=== PATIENT | female | born 1975 | race American Indian/Alaskan Native ===

== ENCOUNTER 2019-11-01 12:12 | Inpatient (IN) | payer MEDICAID, SELFPAY ==
[2019-11-01 17:16] LABS: Hematocrit 30.5 % (30.3-42.9); Mean Corpuscular HGB Conc 33 % (30-34); Mean Corpuscular Volume 108 fl (79-97); Platelet Count 213 K/mm3 (140-440); Red Blood Count 2.82 M/mm3 (3.65-5.03); Red Cell Distribution Width 17.9 % (13.2-15.2)
[2019-11-01 17:45] LABS: Alanine Aminotransferase 96 units/L (7-56); Albumin 2.7 g/dL (3.9-5); BUN/Creatinine Ratio 47; Blood Urea Nitrogen 14 mg/dL (7-17); Calcium 9.1 mg/dL (8.4-10.2); Hemolysis Index 8
[2019-11-01 17:47] LABS: % Iron Saturation 32.95 %
[2019-11-01] MEDS: PANTOPRAZOLE 40 MG INJ IV SCH (18:07)
[2019-11-01 18:19] LABS: Eosinophils % (Manual) 0 % (0.0-4.3); Total Cells Counted 100
[2019-11-01 18:29] LABS: Macrocytosis 1+; Ovalocytes 1+
[2019-11-01 18:30] LABS: Platelet Estimate Consistent w Auto; Schistocytes Few
--- NOTE | 2019-11-01 19:34 | History and Physical Report ---
History of Present Illness Date of examination: 11/01/19 Date of admission: 11/01/19 15:35 Chief complaint: Generalized weakness, fatigue, poor nutrition. History of present illness: Patient presented to the office .with CC of generalized weakness, fatigue, and unable to ambulate.She had not been able to eat. Recent gi scope , revealed GJ ulcer with some slow bleed.She was admitted, for sxs management, and control. Past History Past Medical History: anemia Social history: single Family history: no significant family history Medications and Allergies Allergies Allergy/AdvReac Type Severity Reaction Status Date / Time No Known Allergies Allergy Unverified 12/14/16 16:56 Home Medications Medication Instructions Recorded Confirmed Last Taken Type Albuterol INH(or & Nicu Only) 2 puff IH QID PRN 12/14/16 12/14/16 Unknown History [ProAir HFA Inhaler] HYDROcodone/APAP 5-325 [[place] 1 each PO Q4HR PRN #15 tablet 12/19/16 Unknown Rx 5/325] Active Meds: Active Medications Cyproheptadine HCl (Periactin) 4 mg PO TID VALERIA Fluoxetine HCl (Prozac) 20 mg PO QDAY VALERIA Folic Acid (Folvite) 1 mg PO QDAY VALERIA Dextrose/Sodium Chloride (D5ns) 1,000 mls @ 150 mls/hr IV DIRECT VALERIA Pantoprazole Sodium (Protonix) 20 mg IV QDAY [facility] Last Admin: 11/01/19 18:07 Dose: 20 mg Documented by: Sodium Chloride (Sodium Chloride Flush Syringe 10 Ml) 10 ml IV BID VALERIA Sodium Chloride (Sodium Chloride Flush Syringe 10 Ml) 10 ml IV PRN PRN PRN Reason: LINE FLUSH Review of Systems Constitutional: fatigue, weakness Breasts: deferred Cardiovascular: lightheadedness Neurological: weakness, parathesias Psychiatric: anxiety Exam - Constitutional Vitals: Temp Pulse Resp BP Pulse Ox 97.8 F 89 14 89/54 96 11/01/19 17:45 11/01/19 17:45 11/01/19 17:45 11/01/19 17:45 11/01/19 17:45 General appearance: Present: mild distress, well-nourished - EENT Eyes: Present: PERRL ENT: hearing intact, clear oral mucosa - Neck Neck: Present: supple, normal ROM - Respiratory Respiratory effort: normal Respiratory: bilateral: CTA - Cardiovascular Heart Sounds: Present: S1 & S2. Absent: rub, click - Extremities Extremities: pulses symmetrical, No edema Peripheral Pulses: within normal limits - Abdominal General gastrointestinal: Present: soft, non-tender, non-distended, normal bowel sounds Female genitourinary: Present: deferred - Rectal Rectal Exam: deferred - Integumentary Integumentary: Present: clear, warm, dry - Musculoskeletal Musculoskeletal: gait normal, strength equal bilaterally - Psychiatric Psychiatric: appropriate mood/affect, intact judgment & insight - Neurologic Neurologic: CNII-XII intact, moves all extremities Results - Labs CBC & Chem 7: 11/01/19 16:50 11/01/19 16:50 Labs: Abnormal lab results 11/01/19 11/01/19 11/01/19 Range/Units 16:50 16:50 16:50 WBC 1.9 L* (4.5-11.0) K/mm3 RBC 2.82 L (3.65-5.03) M/mm3 Hgb 10.0 L (10.1-14.3) gm/dl MCV 108 H (79-97) fl MCH 36 H (28-32) pg RDW 17.9 H (13.2-15.2) % Lymphocytes % (Manual) 45.0 H (13.4-35.0) % Monocytes % (Manual) 11.0 H (0.0-7.3) % Seg Neutrophils # Man 0.8 L (1.8-7.7) K/mm3 Lymphocytes # (Manual) 0.9 L (1.2-5.4) K/mm3 Chloride 108.7 H (98-107) mmol/L Carbon Dioxide 19 L (22-30) mmol/L Creatinine 0.3 L (0.7-1.2) mg/dL Glucose 60 L (65-100) mg/dL TIBC 173 L (250-450) mcg/dL Transferrin 164 L (192-382) mg/dl Ferritin (13.0-400.0) ng/mL AST 49 H (5-40) units/L ALT 96 H (7-56) units/L Total Protein 5.6 L (6.3-8.2) g/dL Albumin 2.7 L (3.9-5) g/dL Vitamin B12 (211-911) pg/mL 11/01/19 11/01/19 Range/Units 17:01 17:02 WBC (4.5-11.0) K/mm3 RBC (3.65-5.03) M/mm3 Hgb (10.1-14.3) gm/dl MCV (79-97) fl MCH (28-32) pg RDW (13.2-15.2) % Lymphocytes % (Manual) (13.4-35.0) % Monocytes % (Manual) (0.0-7.3) % Seg Neutrophils # Man (1.8-7.7) K/mm3 Lymphocytes # (Manual) (1.2-5.4) K/mm3 Chloride (98-107) mmol/L Carbon Dioxide (22-30) mmol/L Creatinine (0.7-1.2) mg/dL Glucose (65-100) mg/dL TIBC (250-450) mcg/dL Transferrin (192-382) mg/dl Ferritin 510.6 H (13.0-400.0) ng/mL AST (5-40) units/L ALT (7-56) units/L Total Protein (6.3-8.2) g/dL Albumin (3.9-5) g/dL Vitamin B12 > 2000 H (211-911) pg/mL Assessment and Plan - Patient Problems (1) Dehydration Current Visit: Yes Status: Acute Plan to address problem: hydration (2) Generalized weakness Current Visit: Yes Status: Acute Plan to address problem: Supportive care. (3) Poor nutrition Current Visit: Yes Status: Acute Plan to address problem: appetite enhancement. (4) Anemia Current Visit: Yes Status: Acute Plan to address problem: monitor labs.
[2019-11-01] MEDS ORDERED: [UNRECOGNIZED DRUG - REMARK] IH PRN ×2 (19:49→19:56)
[2019-11-01] MEDS ORDERED: ALBUTEROL 2.5 MG/3 ML NEBU IH PRN (20:04)
[2019-11-01] MEDS: ALPRAZolam 0.25 MG TAB PO SCH (22:27)
[2019-11-01] MEDS: CYPROHEPTADINE 4 MG TAB PO SCH (22:27)
[2019-11-02] MEDS ORDERED: SODIUM CHLORIDE 0.9% 500 ML 500 ML IV ONE (05:14)
[2019-11-02] MEDS ORDERED: SODIUM CHLORIDE 0.9% 500 ML 500 ML ONE (05:24)
[2019-11-02] MEDS: D5W/0.9% NACL 1,000 ML IV SCH ×2 (05:28→17:33)
[2019-11-02] MEDS: CYPROHEPTADINE 4 MG TAB PO SCH ×3 (09:01→21:25)
[2019-11-02] MEDS: PANTOPRAZOLE 40 MG INJ IV SCH (10:57)
[2019-11-02] MEDS: FOLIC ACID 1 MG TAB PO SCH (10:57)
[2019-11-02] MEDS: FLUoxetine 20 MG CAP PO SCH (10:57)
[2019-11-02] MEDS: ALPRAZolam 0.25 MG TAB PO SCH ×3 (10:57→21:25)
[2019-11-02] MEDS ORDERED: SODIUM CHLORIDE 0.9% 250ML 250 ML IV ONE (18:22)
--- NOTE | 2019-11-02 19:10 | Progress Note ---
Assessment and Plan - Patient Problems (1) Dehydration Current Visit: Yes Status: Acute Plan to address problem: hydration (2) Generalized weakness Current Visit: Yes Status: Acute Plan to address problem: Supportive care. (3) Poor nutrition Current Visit: Yes Status: Acute Plan to address problem: appetite enhancement. (4) Anemia Current Visit: Yes Status: Acute Plan to address problem: monitor labs. Subjective Date of service: 11/02/19 Interval history: Patient seen/examined, resting in bed. BP gets low to below 80, boluses of NS given.PT seen patient , and rec WALKER, instead of a cane.New labs ordered for am. Status changed due to clinical need. Work up incomplete. Objective - Constitutional Vitals: Vital Signs - 12hr 11/02/19 11/02/19 12:29 17:27 Temperature 99.0 F 97.4 F L Pulse Rate 83 92 H Respiratory 18 22 Rate Blood Pressure 85/57 79/56 O2 Sat by Pulse 97 98 Oximetry General appearance: Present: mild distress, cachectic - EENT Eyes: PERRL, EOM intact ENT: hearing intact, clear oral mucosa Ears: bilateral: normal - Neck Neck: supple, normal ROM - Respiratory Respiratory effort: normal Respiratory: bilateral: CTA - Breasts Breasts: deferred - Cardiovascular Rhythm: regular Heart Sounds: Present: S1 & S2. Absent: gallop, rub Extremities: pulses intact, No edema, normal color, Full ROM - Gastrointestinal General gastrointestinal: Present: soft, non-tender, non-distended, normal bowel sounds Rectal Exam: deferred - Genitourinary Female genitourinary: deferred - Integumentary Integumentary: clear, warm, dry - Musculoskeletal Musculoskeletal: 1, strength equal bilaterally - Neurologic Neurologic: moves all extremities - Psychiatric Psychiatric: memory intact, appropriate mood/affect, intact judgment & insight - Labs CBC & Chem 7: 11/01/19 16:50 11/01/19 16:50 Labs: Abnormal lab results 11/02/19 Range/Units 05:56 PTH Intact 74.90 H (15-65) pg/mL
[2019-11-02] MEDS ORDERED: SODIUM CHLORIDE 0.9% 500 ML 500 ML IV PRN (20:42)
[2019-11-02] MEDS ORDERED: traMADol 50 MG TAB PO PRN (20:46)
[2019-11-02] MEDS ORDERED: ONDANSETRON 4 MG/2 ML INJ IV PRN (20:48)
[2019-11-03] MEDS: D5W/0.9% NACL 1,000 ML IV SCH ×2 (05:40→12:53)
[2019-11-03] MEDS: CYPROHEPTADINE 4 MG TAB PO SCH ×3 (08:41→21:21)
[2019-11-03 09:08] LABS: Hematocrit 26.4 % (30.3-42.9); Hemoglobin 8.8 gm/dl (10.1-14.3); Mean Corpuscular HGB Conc 33 % (30-34); Mean Corpuscular Volume 109 fl (79-97); Platelet Count 206 K/mm3 (140-440); Red Blood Count 2.42 M/mm3 (3.65-5.03); Red Cell Distribution Width 17.7 % (13.2-15.2)
[2019-11-03 09:18] LABS: Alanine Aminotransferase 102 units/L (7-56); Albumin 2.3 g/dL (3.9-5); BUN/Creatinine Ratio 33; Blood Urea Nitrogen 10 mg/dL (7-17); Calcium 8.6 mg/dL (8.4-10.2); Hemolysis Index 71
[2019-11-03 09:31] LABS: Free T4 (Free Thyroxine) 0.75 ng/dL (0.76-1.46); Hepatitis B Surface Antigen Non-Reactive (Negative); Hepatitis C Virus Antibody Non-Reactive (NonReactive)
[2019-11-03 09:44] LABS: Eosinophils # (Auto) 0.1 K/mm3 (0.0-0.4); Eosinophils % (Auto) 4.7 % (0.0-4.3); Monocytes # (Auto) 0.2 K/mm3 (0.0-0.8); Monocytes % (Auto) 12.3 % (0.0-7.3)
[2019-11-03] MEDS: ALPRAZolam 0.25 MG TAB PO SCH ×2 (11:00→21:21)
[2019-11-03] MEDS: FLUoxetine 20 MG CAP PO SCH (11:25)
[2019-11-03] MEDS: PANTOPRAZOLE 20 MG TAB PO SCH (11:25)
[2019-11-03] MEDS: FOLIC ACID 1 MG TAB PO SCH (11:25)
[2019-11-03 11:55] LABS: Basophils % (Manual) 0 % (0.0-1.8); Total Cells Counted 100
[2019-11-03 11:56] LABS: Schistocytes Few; Target Cells Few
[2019-11-03 11:57] LABS: Platelet Estimate Consistent w Auto
--- NOTE | 2019-11-03 15:54 | Progress Note ---
Assessment and Plan - Patient Problems (1) Dehydration Current Visit: Yes Status: Acute Plan to address problem: hydration see notes above. (2) Generalized weakness Current Visit: Yes Status: Acute Plan to address problem: Supportive care. she may benefit from in patient rehab. (3) Poor nutrition Current Visit: Yes Status: Acute Plan to address problem: appetite enhancement. (4) Anemia Current Visit: Yes Status: Acute Plan to address problem: monitor labs. Subjective Date of service: 11/03/19 Interval history: Patient seen/examined, resting in bed. BP gets low to below 80, boluses of NS gi ayaka.PT seen patient , and rec WALKER, instead of a cane.New labs ordered for am. Status changed due to clinical need. Work up incomplete. Patient seen/examined, resting in bed, c/o still quite fatigued, weakness. labs reviewed, AST, ALT worsened, Cl up WBC even lower. Will change fluid to D5W.Will give growth factor if wbc continues to go up.Will get neurology involved.Do US of the abdomen. Objective - Constitutional Vitals: Vital Signs - 12hr 11/03/19 11/03/19 05:40 11:34 Temperature 97.0 F L 98.3 F Pulse Rate 72 79 Respiratory 16 18 Rate Blood Pressure 91/62 91/63 O2 Sat by Pulse 100 99 Oximetry General appearance: Present: mild distress, cachectic - EENT Eyes: PERRL, EOM intact ENT: hearing intact, clear oral mucosa Ears: bilateral: normal - Neck Neck: supple, normal ROM - Respiratory Respiratory effort: normal Respiratory: bilateral: CTA - Breasts Breasts: deferred - Cardiovascular Rhythm: regular Heart Sounds: Present: S1 & S2. Absent: gallop, rub Extremities: pulses intact, No edema, normal color, Full ROM - Gastrointestinal General gastrointestinal: Present: soft, non-tender, non-distended, normal bowel sounds Rectal Exam: deferred - Genitourinary Female genitourinary: deferred - Integumentary Integumentary: clear, warm, dry - Musculoskeletal Musculoskeletal: 1, strength equal bilaterally - Neurologic Neurologic: moves all extremities - Psychiatric Psychiatric: memory intact, appropriate mood/affect, intact judgment & insight - Labs CBC & Chem 7: 11/03/19 08:35 11/03/19 08:35 Labs: Abnormal lab results 11/03/19 11/03/19 11/03/19 Range/Units 08:35 08:35 08:35 WBC 1.6 L* (4.5-11.0) K/mm3 RBC 2.42 L (3.65-5.03) M/mm3 Hgb 8.8 L (10.1-14.3) gm/dl Hct 26.4 L (30.3-42.9) % MCV 109 H (79-97) fl MCH 36 H (28-32) pg RDW 17.7 H (13.2-15.2) % [place] % (Auto) 12.3 H (0.0-7.3) % Eos % (Auto) 4.7 H (0.0-4.3) % Seg Neuts % (Manual) 28.0 L (40.0-70.0) % Lymphocytes % (Manual) 52.0 H (13.4-35.0) % Monocytes % (Manual) 16.0 H (0.0-7.3) % Seg Neutrophils # 0.5 L (1.8-7.7) K/mm3 Seg Neutrophils # Man 0.4 L (1.8-7.7) K/mm3 Lymphocytes # (Manual) 0.8 L (1.2-5.4) K/mm3 Percent Retic 3.72 H (0.78-2.58) % Chloride 114.0 H (98-107) mmol/L Carbon Dioxide 18 L (22-30) mmol/L Creatinine 0.3 L (0.7-1.2) mg/dL AST 87 H (5-40) units/L ALT 102 H (7-56) units/L Total Protein 4.3 L D (6.3-8.2) g/dL Albumin 2.3 L (3.9-5) g/dL Free T4 0.75 L (0.76-1.46) ng/dL
--- NOTE | 2019-11-03 16:10 | Progress Note ---
Assessment and Plan - Patient Problems (1) Dehydration Current Visit: Yes Status: Acute Plan to address problem: hydration see notes above. (2) Generalized weakness Current Visit: Yes Status: Acute Plan to address problem: Supportive care. she may benefit from in patient rehab. (3) Poor nutrition Current Visit: Yes Status: Acute Plan to address problem: appetite enhancement. (4) Anemia Current Visit: Yes Status: Acute Plan to address problem: monitor labs. Subjective Date of service: 11/03/19 Interval history: Patient seen/examined, resting in bed. BP gets low to below 80, boluses of NS gi ayaka.PT seen patient , and rec WALKER, instead of a cane.New labs ordered for am. Status changed due to clinical need. Work up incomplete. Patient seen/examined, resting in bed, c/o still quite fatigued, weakness. labs reviewed, AST, ALT worsened, Cl up WBC even lower. Will change fluid to D5W.Will give growth factor if wbc continues to go up.Will get neurology involved.Do US of the abdomen. patient seen/examined, resting in bed, labs reviewed, case d/w patient. Objective - Constitutional Vitals: Vital Signs - 12hr 11/03/19 11/03/19 05:40 11:34 Temperature 97.0 F L 98.3 F Pulse Rate 72 79 Respiratory 16 18 Rate Blood Pressure 91/62 91/63 O2 Sat by Pulse 100 99 Oximetry General appearance: Present: mild distress, well-nourished - EENT Eyes: PERRL, EOM intact ENT: hearing intact, clear oral mucosa Ears: bilateral: normal - Neck Neck: supple, normal ROM - Respiratory Respiratory effort: normal Respiratory: bilateral: CTA - Breasts Breasts: deferred - Cardiovascular Rhythm: regular Heart Sounds: Present: S1 & S2. Absent: gallop, rub Extremities: pulses intact, No edema, normal color, Full ROM - Gastrointestinal General gastrointestinal: Present: soft, non-tender, non-distended, normal bowel sounds Rectal Exam: deferred - Genitourinary Female genitourinary: deferred - Integumentary Integumentary: clear, warm, dry - Musculoskeletal Musculoskeletal: 1, strength equal bilaterally - Neurologic Neurologic: moves all extremities - Psychiatric Psychiatric: memory intact, appropriate mood/affect, intact judgment & insight - Labs CBC & Chem 7: 11/03/19 08:35 11/03/19 08:35 Labs: Abnormal lab results 11/03/19 11/03/19 11/03/19 Range/Units 08:35 08:35 08:35 WBC 1.6 L* (4.5-11.0) K/mm3 RBC 2.42 L (3.65-5.03) M/mm3 Hgb 8.8 L (10.1-14.3) gm/dl Hct 26.4 L (30.3-42.9) % MCV 109 H (79-97) fl MCH 36 H (28-32) pg RDW 17.7 H (13.2-15.2) % [place] % (Auto) 12.3 H (0.0-7.3) % Eos % (Auto) 4.7 H (0.0-4.3) % Seg Neuts % (Manual) 28.0 L (40.0-70.0) % Lymphocytes % (Manual) 52.0 H (13.4-35.0) % Monocytes % (Manual) 16.0 H (0.0-7.3) % Seg Neutrophils # 0.5 L (1.8-7.7) K/mm3 Seg Neutrophils # Man 0.4 L (1.8-7.7) K/mm3 Lymphocytes # (Manual) 0.8 L (1.2-5.4) K/mm3 Percent Retic 3.72 H (0.78-2.58) % Chloride 114.0 H (98-107) mmol/L Carbon Dioxide 18 L (22-30) mmol/L Creatinine 0.3 L (0.7-1.2) mg/dL AST 87 H (5-40) units/L ALT 102 H (7-56) units/L Total Protein 4.3 L D (6.3-8.2) g/dL Albumin 2.3 L (3.9-5) g/dL Free T4 0.75 L (0.76-1.46) ng/dL
[2019-11-03] MEDS: DEXTROSE 5% IN WATER 1,000 ML IV SCH ×2 (17:22→23:02)
[2019-11-03 17:56] LABS: Hematocrit 28.8 % (30.3-42.9); Hemoglobin 9.4 gm/dl (10.1-14.3); Mean Corpuscular HGB Conc 33 % (30-34); Mean Corpuscular Volume 109 fl (79-97); Platelet Count 225 K/mm3 (140-440); Red Blood Count 2.64 M/mm3 (3.65-5.03); Red Cell Distribution Width 18.1 % (13.2-15.2)
[2019-11-03] MEDS: CYANOCOBALAMIN (VIT B-12) 1000 MCG/1 ML INJ SUB-Q SCH (21:42)
[2019-11-03 22:06] LABS: Basophils % (Manual) 0 % (0.0-1.8); Ovalocytes 1+; Total Cells Counted 100
[2019-11-03 22:07] LABS: Crenated RBC 1+; Macrocytosis 1+; Platelet Estimate Consistent w Auto
[2019-11-04] MEDS: DEXTROSE 5% IN WATER 1,000 ML IV SCH ×2 (06:27→20:00)
--- NOTE | 2019-11-04 10:04 | Ultrasound Report ---
ULTRASOUND ABDOMEN, COMPLETE INDICATION: Elevated LFTS/abd pain.. COMPARISON: No relevant prior imaging study available. FINDINGS: Pancreas: No significant abnormality. Abdominal Aorta: No significant abnormality. IVC: No significant abnormality. Liver: The liver measures 14.2 cm in length. Diffusely increased hepatic echogenicity which typically indicates hepatic steatosis.. Normal hepatopedal blood flow in the main portal vein. Gallbladder: Surgically absent. Bile ducts: No significant abnormality. Common bile duct measures 1.7 mm. Right kidney: 12.5 cm in length. No significant abnormality. Left kidney: 11.3 cm in length. No significant abnormality. Spleen: No significant abnormality. Free fluid: None. Additional Findings: None. IMPRESSION: 1. Sonographic findings suggesting hepatic steatosis. Signer Name: Mike Raya MD Signed: 11/04/2019 10:00 AM Workstation Name: [id number]
[2019-11-04 10:16] LABS: Alanine Aminotransferase 113 units/L (7-56); Albumin 2.1 g/dL (3.9-5); BUN/Creatinine Ratio 27; Blood Urea Nitrogen 8 mg/dL (7-17); Calcium 8.8 mg/dL (8.4-10.2); Hemolysis Index 10
--- NOTE | 2019-11-04 14:07 | Magnetic Resonance Report ---
MRI THORACIC SPINE WITHOUT AND WITH CONTRAST INDICATION / CLINICAL INFORMATION: global paresthesia. Myelopathy. TECHNIQUE: Multisequence, multiplanar images of the thoracic spine were obtained. Contrast dose report: MultiHance: 12 mL administered intravenously. COMPARISON: None available. FINDINGS: ALIGNMENT: Normal alignment is maintained throughout the thoracic region. VERTEBRAE:Normal marrow signal and vertebral body height is demonstrated throughout. VISUALIZED SPINAL CORD: No cord signal abnormality. No intrinsic cord lesions are identified. There i s no indication of cord compression. DEGENERATIVE FINDINGS: There is no indication of disc herniation, central canal stenosis or neurofora lashawn narrowing. PARASPINAL SOFT TISSUES: Small bilateral pleural effusions are noted. No additional paraspinous abnor malities are identified. ADDITIONAL FINDINGS: None. IMPRESSION: 1. No focal disc herniation, spinal canal stenosis or nerve root compression. 2. No indication of intrinsic cord lesion or cord compression. Signer Name: Jonathan Tanner MD Signed: 11/04/2019 2:00 PM Workstation Name: [id number]
--- NOTE | 2019-11-04 14:08 | Magnetic Resonance Report ---
MRI LUMBAR SPINE WITHOUT AND WITH CONTRAST INDICATION / CLINICAL INFORMATION: Sensory disturbance with global paresthesias. Myelopathy. TECHNIQUE: Multisequence, multiplanar images of the lumbar spine were obtained. Contrast dose report: MultiHance: 12 mL administered intravenously. COMPARISON: None available. FINDINGS: ALIGNMENT: Normal alignment is maintained throughout the lumbar region. VERTEBRAE:Normal bone marrow signal intensity is maintained throughout the lumbar region. Vertebral m orphology is normally preserved throughout. DISC MORPHOLOGY:Disc height and disc signal intensity are normally maintained throughout the lumbar r egion. VISUALIZED SPINAL CORD: Distal thoracic spinal cord, conus and nerve roots of the cauda equina all mcgarry ve an unremarkable appearance. Conus terminates at about the level of the superior endplate of L1. [id number] ANALYSIS: L1-2: No significant abnormality. L2-3: No significant abnormality. L3-4: No significant abnormality. L4-5: A small synovial cyst projects superiorly from the right L4-5 facet joint. L5-S1: No significant abnormality. There is no indication of disc herniation, central canal stenosis or neuroforaminal narrowing. PARASPINAL SOFT TISSUES: Evaluation of the paraspinous soft tissues reveals no definite abnormalities . Contrast administration: Following administration of intravenous contrast material there is enhanceme nt of normal vascular structures. No areas of abnormal contrast enhancement are identified. IMPRESSION: 1. No focal disc herniation, spinal canal stenosis or nerve root compression. 2. No indication of abnormal contrast enhancement. Signer Name: Jonathan Tanner MD Signed: 11/04/2019 2:04 PM Workstation Name: [id number]
--- NOTE | 2019-11-04 14:11 | Magnetic Resonance Report ---
MRI BRAIN WITHOUT AND WITH CONTRAST INDICATION / CLINICAL INFORMATION: severe myopathy/difficulty walking.. TECHNIQUE: Multisequence, multiplanar images were obtained. 12 cc of MultiHance was administered for postcontras t imaging. COMPARISON: None available. FINDINGS: The brain parenchyma signal intensity and its ga-white interface are within normal limits on all se quences. No evidence for diffusion restriction, hemorrhage, enhancing mass, extra-axial fluid collect ion or chronic infarct. No chronic white matter changes. Ventricular size is normal. The basal cister ns are patent. The posterior fossa and contents are within normal limits. The orbital cavities and paranasal sinuses are unremarkable. The mastoid air cells are well-aerated. IMPRESSION: Unremarkable MR brain with and without contrast. Signer Name: Carlos Greene Jr, MD Signed: 11/04/2019 2:07 PM Workstation Name: [id number]
--- NOTE | 2019-11-04 14:21 | Magnetic Resonance Report ---
MR CERVICAL SPINE WITH AND WITHOUT CONTRAST HISTORY: Severe myopathy, difficulty walking TECHNIQUE: Multisequence, multiplanar MRI before and after IV gadolinium. 12 cc of MultiHance was adm inistered intravenously. COMPARISON: None. FINDINGS: The cervical spinal cord is normal size and signal intensity throughout. No central canal stenosis, a bnormal intramedullary signal or abnormal enhancement. Normal height and alignment of the cervical vertebral bodies. An approximate 8 mm bone lesion is iden tified in C5 which demonstrates intermediate signal on T1, increased signal on T2 and mild enhancemen t following contrast. This has the appearance of an slightly atypical bone hemangioma. The remaining bone marrow signal is normal. The discs are within normal limits. No evidence for bulging disc or herniation. No significant degene rative disc disease. The facet joints and posterior elements are within normal limits. The paraspinal soft tissues are unremarkable. IMPRESSION: Unremarkable MR cervical spine with and without contrast. Vertebral body bone hemangioma is suspected at C5. Signer Name: Carlos Greene Jr, MD Signed: 11/04/2019 2:17 PM Workstation Name: [id number]
[2019-11-04] MEDS: CYPROHEPTADINE 4 MG TAB PO SCH ×3 (14:58→21:07)
[2019-11-04] MEDS: FOLIC ACID 1 MG TAB PO SCH (14:58)
[2019-11-04] MEDS: FLUoxetine 20 MG CAP PO SCH (14:59)
[2019-11-04] MEDS: PANTOPRAZOLE 20 MG TAB PO SCH (14:59)
[2019-11-04] MEDS: CYANOCOBALAMIN (VIT B-12) 1000 MCG/1 ML INJ SUB-Q SCH (15:00)
[2019-11-04] MEDS: ALPRAZolam 0.25 MG TAB PO SCH ×2 (15:01→21:56)
--- NOTE | 2019-11-04 17:08 | Consultation ---
History of Present Illness Consult date: 11/04/19 Reason for consult: other (marginal ulcer after gastric bypass) Chief complaint: generalized weakness - History of present illness History of present illness: 44 year old female presented to hospital with progressive generalized weakness, difficulty walking. She has hx of lap gastric bypass that had complications (pt unsure about details) that required two additional surgeries. She has had the weakness for about 3-4 months, but has been worked up for significant iron, vitamin D and B12 deficiency for which she was placed on replacement therapy but admits to taking it inconsistently. As part of her work up she had an EGD that showed a marginal ulcer in 03/2019 for which she was not placed on therapy. They repeated the EGD last week and showed that the ulcer appears larger and deeper. There was no active bleeding and patient denies noticing any blood in her stools. She says that she was started on some kind of medication about 2 weeks prior to the recent EGD but cannot recall what it is. She says that she gets epigastric discomfort when she eats. Past History Past Medical History: anemia Past Surgical History: cholecystectomy, , Other (lap gastric bypass with two additional procedures for complications within the first year of surgery) Social history: single Family history: no significant family history Medications and Allergies Allergies Allergy/AdvReac Type Severity Reaction Status Date / Time No Known Allergies Allergy Unverified 12/14/16 16:56 Home Medications Medication Instructions Recorded Confirmed Last Taken Type Albuterol INH(or & Nicu Only) 2 puff IH QID PRN 12/14/16 12/14/16 Unknown History [ProAir HFA Inhaler] HYDROcodone/APAP 5-325 [[place] 1 each PO Q4HR PRN #15 tablet 12/19/16 Unknown Rx 5/325] Active Meds: Active Medications Albuterol (Proventil) 2.5 mg IH QID PRN PRN Reason: Shortness Of Breath Alprazolam (Xanax) 0.25 mg PO Q12HR [facility] Last Admin: 11/04/19 15:01 Dose: 0.25 mg Documented by: Cyanocobalamin (Vitamin B-12) 1,000 mcg SUB-Q DAILY [facility] Stop: 11/05/19 10:01 Last Admin: 11/04/19 15:00 Dose: 1,000 mcg Documented by: Cyanocobalamin (Vitamin B-12) 1,000 mcg SUB-Q Tu [facility] Cyproheptadine HCl (Periactin) 4 mg PO TID [facility] Last Admin: 11/04/19 14:58 Dose: 4 mg Documented by: Fluoxetine HCl (Prozac) 20 mg PO QDAY [facility] Last Admin: 11/04/19 14:59 Dose: 20 mg Documented by: Folic Acid (Folvite) 1 mg PO QDAY [facility] Last Admin: 11/04/19 14:58 Dose: 1 mg Documented by: Sodium Chloride (Nacl 0.9% 500 Ml) 500 mls @ 0 mls/hr IV PRN PRN PRN Reason: SBP < 80 Last Admin: 11/04/19 01:54 Dose: 999 mls/hr Documented by: Dextrose (D5w) 1,000 mls @ 150 mls/hr IV DIRECT [facility] Last Admin: 11/04/19 06:27 Dose: 150 mls/hr Documented by: Thiamine HCl 100 mg/ Sodium (Chloride) 51 mls @ 100 mls/hr IV QDAY [facility] Ondansetron HCl (Zofran) 4 mg IV Q8H PRN PRN Reason: Nausea And Vomiting Pantoprazole Sodium (Protonix) 40 mg IV BID [facility] Sodium Chloride (Sodium Chloride Flush Syringe 10 Ml) 10 ml IV BID [facility] Last Admin: 11/04/19 14:59 Dose: 10 ml Documented by: Sodium Chloride (Sodium Chloride Flush Syringe 10 Ml) 10 ml IV PRN PRN PRN Reason: LINE FLUSH Sucralfate (Carafate) 1 gm PO Q6HR [facility] Tramadol HCl (Ultram) 50 mg PO Q12H PRN PRN Reason: Pain, Moderate (4-6) Review of Systems - Constitutional fatigue, weakness - Cardiovascular no chest pain - Respiratory no shortness of breath - Gastrointestinal no melena, no hematochezia - Neurological numbness, tingling, gait dysfunction - Psychiatric depression Exam Vital Signs Temp Pulse Resp BP Pulse Ox 97.8 F 89 14 89/54 96 11/01/19 17:45 11/01/19 17:45 11/01/19 17:45 11/01/19 17:45 11/01/19 17:45 - General physical appearance Positive: well developed, no distress - Respiratory Positive: normal expansion, normal respiratory effort - Abdomen Abdomen: Present: soft. Absent: tender, distended, guarding, rigid - Neurologic Neurologic: alert and oriented to time, place and person Results - Labs 11/03/19 17:00 11/04/19 07:45 Abnormal lab results 11/03/19 11/04/19 Range/Units 17:00 07:45 WBC 2.2 L (4.5-11.0) K/mm3 RBC 2.64 L (3.65-5.03) M/mm3 Hgb 9.4 L (10.1-14.3) gm/dl Hct 28.8 L (30.3-42.9) % MCV 109 H (79-97) fl MCH 36 H (28-32) pg RDW 18.1 H (13.2-15.2) % Seg Neuts % (Manual) 24.0 L (40.0-70.0) % Lymphocytes % (Manual) 65.0 H (13.4-35.0) % Monocytes % (Manual) 9.0 H (0.0-7.3) % Seg Neutrophils # Man 0.5 L (1.8-7.7) K/mm3 Chloride 111.6 H (98-107) mmol/L Carbon Dioxide 19 L (22-30) mmol/L Creatinine 0.3 L (0.7-1.2) mg/dL AST 78 H (5-40) units/L ALT 113 H (7-56) units/L Total Protein 4.7 L (6.3-8.2) g/dL Albumin 2.1 L (3.9-5) g/dL Diabetes panel 11/04/19 Range/Units 07:45 Sodium 139 (137-145) mmol/L Potassium 4.4 (3.6-5.0) mmol/L Chloride 111.6 H (98-107) mmol/L Carbon Dioxide 19 L (22-30) mmol/L BUN 8 (7-17) mg/dL Creatinine 0.3 L (0.7-1.2) mg/dL Glucose 73 (65-100) mg/dL Calcium 8.8 (8.4-10.2) mg/dL AST 78 H (5-40) units/L ALT 113 H (7-56) units/L Alkaline Phosphatase 92 (35-129) units/L Total Protein 4.7 L (6.3-8.2) g/dL Albumin 2.1 L (3.9-5) g/dL Calcium panel 11/04/19 Range/Units 07:45 Calcium 8.8 (8.4-10.2) mg/dL Albumin 2.1 L (3.9-5) g/dL Pituitary panel 11/04/19 Range/Units 07:45 Sodium 139 (137-145) mmol/L Potassium 4.4 (3.6-5.0) mmol/L Chloride 111.6 H (98-107) mmol/L Carbon Dioxide 19 L (22-30) mmol/L BUN 8 (7-17) mg/dL Creatinine 0.3 L (0.7-1.2) mg/dL Glucose 73 (65-100) mg/dL Calcium 8.8 (8.4-10.2) mg/dL Adrenal panel 11/04/19 Range/Units 07:45 Sodium 139 (137-145) mmol/L Potassium 4.4 (3.6-5.0) mmol/L Chloride 111.6 H (98-107) mmol/L Carbon Dioxide 19 L (22-30) mmol/L BUN 8 (7-17) mg/dL Creatinine 0.3 L (0.7-1.2) mg/dL Glucose 73 (65-100) mg/dL Calcium 8.8 (8.4-10.2) mg/dL Total Bilirubin 0.40 (0.1-1.2) mg/dL AST 78 H (5-40) units/L ALT 113 H (7-56) units/L Alkaline Phosphatase 92 (35-129) units/L Total Protein 4.7 L (6.3-8.2) g/dL Albumin 2.1 L (3.9-5) g/dL Assessment and Plan 44 year old hx with a hx of gastric bypass performed about 5 years ago at OSH. currently with peripheral neuropathy, vitamin deficiency, and chronic marginal ulcer. stable and afebrile. getting worked up by neurology - appreciate their input may be a candidate for inpatient PT B12 and iron being replaced. will check thiamine and replace. low albumin and other parameters suggestive of poor nutrition. will change diet to GI soft, continue protein shakes marginal ulcer (no gross active bleeding) will start on IV protonix and carafate liquid to aid in healing of ulcer. most ulcers will heal with supportive care if consistent and given ample time. Surgical records requested from Dr. Buchanan at [facility], waiting for arrival so they can be reviewed. impressed upon patient the importance of being consistent with her vitamin re placement therapy and medical therapy to treat marginal ulcer.
--- NOTE | 2019-11-04 17:26 | Consultation ---
History of Present Illness Consult date: 11/04/19 Reason for Consult: Generalized weakness Chief complaint: Generalized weakness History of present illness: Patient is a 44 y/o woman w/ a h/o anxiety, depression, asthma. Patient states that in June, she began to develop paresthesias in b/l feet. She states that after this, she began to experience generalized weakness. Paresthesias in bilateral feet progressed to the point where she has decreased sensations in both feet. She also began to notice imbalance with walking. She feels that her muscles in the arms and legs have all atrophied some extent. She also states that she has some extent of bowel incontinence, however denies bladder incontinence. She also states that she had 2 coronary accidents about 1 year ago. She denies muscle twitching or cramps. Denies dysphagia and dysarthria. Past History Past Medical History: anemia, other (anxiety, depression, asthma) Past Surgical History: cholecystectomy, , Other (lap gastric bypass with two additional procedures for complications within the first year of surgery) Social history: single, lives with family Family history: no significant family history Medications and Allergies Allergies Allergy/AdvReac Type Severity Reaction Status Date / Time No Known Allergies Allergy Unverified 12/14/16 16:56 Home Medications Medication Instructions Recorded Confirmed Last Taken Type Albuterol INH(or & Nicu Only) 2 puff IH QID PRN 12/14/16 12/14/16 Unknown History [ProAir HFA Inhaler] HYDROcodone/APAP 5-325 [[place] 1 each PO Q4HR PRN #15 tablet 12/19/16 Unknown Rx 5/325] Active Meds: Active Medications Albuterol (Proventil) 2.5 mg IH QID PRN PRN Reason: Shortness Of Breath Alprazolam (Xanax) 0.25 mg PO Q12HR [facility] Last Admin: 11/04/19 15:01 Dose: 0.25 mg Documented by: Cyanocobalamin (Vitamin B-12) 1,000 mcg SUB-Q DAILY [facility] Stop: 11/05/19 10:01 Last Admin: 11/04/19 15:00 Dose: 1,000 mcg Documented by: Cyanocobalamin (Vitamin B-12) 1,000 mcg SUB-Q Tu [facility] Cyproheptadine HCl (Periactin) 4 mg PO TID [facility] Last Admin: 11/04/19 14:58 Dose: 4 mg Documented by: Fluoxetine HCl (Prozac) 20 mg PO QDAY [facility] Last Admin: 11/04/19 14:59 Dose: 20 mg Documented by: Folic Acid (Folvite) 1 mg PO QDAY [facility] Last Admin: 11/04/19 14:58 Dose: 1 mg Documented by: Sodium Chloride (Nacl 0.9% 500 Ml) 500 mls @ 0 mls/hr IV PRN PRN PRN Reason: SBP < 80 Last Admin: 11/04/19 01:54 Dose: 999 mls/hr Documented by: Dextrose (D5w) 1,000 mls @ 150 mls/hr IV DIRECT [facility] Last Admin: 11/04/19 06:27 Dose: 150 mls/hr Documented by: Thiamine HCl 100 mg/ Sodium (Chloride) 51 mls @ 100 mls/hr IV QDAY [facility] Ondansetron HCl (Zofran) 4 mg IV Q8H PRN PRN Reason: Nausea And Vomiting Pantoprazole Sodium (Protonix) 40 mg IV BID [facility] Sodium Chloride (Sodium Chloride Flush Syringe 10 Ml) 10 ml IV BID [facility] Last Admin: 11/04/19 14:59 Dose: 10 ml Documented by: Sodium Chloride (Sodium Chloride Flush Syringe 10 Ml) 10 ml IV PRN PRN PRN Reason: LINE FLUSH Sucralfate (Carafate) 1 gm PO Q6HR [facility] Tramadol HCl (Ultram) 50 mg PO Q12H PRN PRN Reason: Pain, Moderate (4-6) Review of Systems All systems: negative Neurological: weakness, parathesias, numbness Physical Examination - Vital Signs Vital Signs: Vital Signs Temp Pulse Resp BP Pulse Ox 97.8 F 89 14 89/54 96 11/01/19 17:45 11/01/19 17:45 11/01/19 17:45 11/01/19 17:45 11/01/19 17:45 - Physical Exam Narrative exam: Patient is alert, awake, oriented 4, follows complex commands. PERRL, EOMI, VFF, no facial weakness noted, bilateral intact to light touch, no tongue atrophy or fasciculations noted. 4/5 strength noted in bilateral upper extremities, 3/5 strength noted in bilateral lower extremities. Noted to have decreased sensations in bilateral lower extremities with a proximal distal gradient. Noted to have decreased proprioception and vibration sensation in bilateral lower extremities in a proximal distal gradient. Bilaterally intact finger to nose, however unable to perform [id number] due to bilateral lower extremity weakness. 1+ reflexes in bilateral upper extremities and patellar reflexes, absent ankle reflexes bilaterally. - Constitutional General appearance: comfortable - EENT EENT: Present: ATNC, PERRL, mucous membranes moist, hearing intact, vision intact - Respiratory Respiratory: Present: lungs clear, normal breath sounds - Cardiovascular Cardiovascular: Present: regular rate, normal S1, normal S2 Extremities: Present: no clubbing, cyanosis, no inflammation - Gastrointestinal Gastrointestinal: Present: normoactive bowel sounds, soft, non-tender - Integumentary Integumentary: Present: normal - Musculoskeletal Musculoskeletal: Present: no fluid collection, no pain - Psychiatric Psychiatric: Present: mood/affect appropriate Results - Laboratory Findings CBC and BMP: 11/03/19 17:00 11/04/19 07:45 Abnormal Lab Findings: Abnormal Labs 11/01/19 11/01/19 11/01/19 16:50 16:50 16:50 WBC 1.9 L* RBC 2.82 L Hgb 10.0 L Hct MCV 108 H MCH 36 H RDW 17.9 H [place] % (Auto) Eos % (Auto) Seg Neuts % (Manual) Lymphocytes % (Manual) 45.0 H Monocytes % (Manual) 11.0 H Seg Neutrophils # Seg Neutrophils # Man 0.8 L Lymphocytes # (Manual) 0.9 L Percent Retic Chloride 108.7 H Carbon Dioxide 19 L Creatinine 0.3 L Glucose 60 L TIBC 173 L Transferrin 164 L Ferritin AST 49 H ALT 96 H Total Protein 5.6 L Albumin 2.7 L Vitamin B12 Free T4 PTH Intact 11/01/19 11/01/19 11/02/19 17:01 17:02 05:56 WBC RBC Hgb Hct MCV MCH RDW [place] % (Auto) Eos % (Auto) Seg Neuts % (Manual) Lymphocytes % (Manual) Monocytes % (Manual) Seg Neutrophils # Seg Neutrophils # Man Lymphocytes # (Manual) Percent Retic Chloride Carbon Dioxide Creatinine Glucose TIBC Transferrin Ferritin 510.6 H AST ALT Total Protein Albumin Vitamin B12 > 2000 H Free T4 PTH Intact 74.90 H 11/03/19 11/03/19 11/03/19 08:35 08:35 08:35 WBC 1.6 L* RBC 2.42 L Hgb 8.8 L Hct 26.4 L MCV 109 H MCH 36 H RDW 17.7 H [place] % (Auto) 12.3 H Eos % (Auto) 4.7 H Seg Neuts % (Manual) 28.0 L Lymphocytes % (Manual) 52.0 H Monocytes % (Manual) 16.0 H Seg Neutrophils # 0.5 L Seg Neutrophils # Man 0.4 L Lymphocytes # (Manual) 0.8 L Percent Retic 3.72 H Chloride 114.0 H Carbon Dioxide 18 L Creatinine 0.3 L Glucose TIBC Transferrin Ferritin AST 87 H ALT 102 H Total Protein 4.3 L D Albumin 2.3 L Vitamin B12 Free T4 0.75 L PTH Intact 11/03/19 11/04/19 17:00 07:45 WBC 2.2 L RBC 2.64 L Hgb 9.4 L Hct 28.8 L MCV 109 H MCH 36 H RDW 18.1 H [place] % (Auto) Eos % (Auto) Seg Neuts % (Manual) 24.0 L Lymphocytes % (Manual) 65.0 H Monocytes % (Manual) 9.0 H Seg Neutrophils # Seg Neutrophils # Man 0.5 L Lymphocytes # (Manual) Percent Retic Chloride 111.6 H Carbon Dioxide 19 L Creatinine 0.3 L Glucose TIBC Transferrin Ferritin AST 78 H ALT 113 H Total Protein 4.7 L Albumin 2.1 L Vitamin B12 Free T4 PTH Intact Assessment and Plan Patient is a 44 y/o woman w/ a h/o anxiety, depression, asthma, who p/w generalized weakness, decreased sensations in bilateral lower extremities in a proximal distal gradient, and imbalance. According to patient's clinical findings, it is possible that she has a generalized peripheral neuropathy. Given the fact that the patient has a history of gastric bypass 4 years ago, it is possible that the patient's current symptoms are due to macronutrient or micronutrient deficiency. To support this diagnosis, the patient also has pancytopenia, which may also be due to nutrient deficiency. Given her gradual progression of symptoms, it is less likely that she has AIDP or CIDP, however this is still in d/d. Plan: 1. Peripheral neuropathy: - MRI brain C/T/L spine unremarkable. - Given h/o gastric bypass, will check deficiency of: copper, Vitamin B1, zinc, folate, vitamin D, magnesium, vitamin E, Vitamin B6 - Check LP for evidence of AIDP/CIDP. - Recommend for patient to have EMG/NCS, which is not performed at [facility], and therefore will have to be done elsewhere. - Recommend PT/OT - Will continue to monitor patient. Thank you for allowing me to take part in the care of this patient. Mendoza Persaud MD Neurology
[2019-11-04] MEDS: SUCRALFATE 1 GM/10 ML ORAL LIQD PO SCH (18:12)
[2019-11-04] MEDS: THIAMINE 100 MG in SODIUM CHLORIDE 0.9% 50 ML IV SCH (18:12)
--- NOTE | 2019-11-04 20:22 | Progress Note ---
Assessment and Plan - Patient Problems (1) Dehydration Current Visit: Yes Status: Acute Plan to address problem: hydration see notes above. (2) Generalized weakness Current Visit: Yes Status: Acute Plan to address problem: Supportive care. she may benefit from in patient rehab. (3) Poor nutrition Current Visit: Yes Status: Acute Plan to address problem: appetite enhancement. (4) Anemia Current Visit: Yes Status: Acute Plan to address problem: monitor labs. Subjective Date of service: 11/04/19 Interval history: Patient seen/examined, resting in bed. BP gets low to below 80, boluses of NS gi ayaka.PT seen patient , and rec WALKER, instead of a cane.New labs ordered for am. Status changed due to clinical need. Work up incomplete. Patient seen/examined, resting in bed, c/o still quite fatigued, weakness. labs reviewed, AST, ALT worsened, Cl up WBC even lower. Will change fluid to D5W.Will give growth factor if wbc continues to go up.Will get neurology involved.Do US of the abdomen. patient seen/examined, resting in bed, labs reviewed, case d/w patient. Patient seen/examined, resting in bed, scan results reviewed, and case d/w the Neurology, and with patient.There is rare hemangioma on C5 bone, and steastosis of the Liver on US.She was also see by the gastric by pass surgeon, and talat reciated.I will hope that she can go to inpatient rehab. Objective - Constitutional Vitals: Vital Signs - 12hr 11/04/19 15:25 Temperature 98.5 F Pulse Rate 89 Respiratory 19 Rate Blood Pressure 98/64 O2 Sat by Pulse 100 Oximetry General appearance: Present: mild distress, cachectic - EENT Eyes: PERRL, EOM intact ENT: hearing intact, clear oral mucosa Ears: bilateral: normal - Neck Neck: supple, normal ROM - Respiratory Respiratory effort: normal Respiratory: bilateral: CTA - Breasts Breasts: deferred - Cardiovascular Rhythm: regular Heart Sounds: Present: S1 & S2. Absent: gallop, rub Extremities: pulses intact, No edema, normal color, Full ROM - Gastrointestinal General gastrointestinal: Present: soft, non-tender, non-distended, normal bowel sounds - Genitourinary Female genitourinary: deferred - Integumentary Integumentary: clear, warm, dry - Musculoskeletal Musculoskeletal: 1, strength equal bilaterally - Neurologic Neurologic: moves all extremities - Psychiatric Psychiatric: memory intact, appropriate mood/affect, intact judgment & insight - Labs CBC & Chem 7: 11/03/19 17:00 11/04/19 07:45 Labs: Abnormal lab results 11/03/19 11/04/19 Range/Units 17:00 07:45 Seg Neuts % (Manual) 24.0 L (40.0-70.0) % Lymphocytes % (Manual) 65.0 H (13.4-35.0) % Monocytes % (Manual) 9.0 H (0.0-7.3) % Seg Neutrophils # Man 0.5 L (1.8-7.7) K/mm3 Chloride 111.6 H (98-107) mmol/L Carbon Dioxide 19 L (22-30) mmol/L Creatinine 0.3 L (0.7-1.2) mg/dL AST 78 H (5-40) units/L ALT 113 H (7-56) units/L Total Protein 4.7 L (6.3-8.2) g/dL Albumin 2.1 L (3.9-5) g/dL
[2019-11-04 20:26] LABS: Hematocrit 27.3 % (30.3-42.9); Hemoglobin 8.8 gm/dl (10.1-14.3); Mean Corpuscular HGB Conc 32 % (30-34); Mean Corpuscular Volume 109 fl (79-97); Platelet Count 221 K/mm3 (140-440); Red Blood Count 2.49 M/mm3 (3.65-5.03); Red Cell Distribution Width 18.1 % (13.2-15.2)
[2019-11-04 21:27] LABS: Crenated RBC 1+; Macrocytosis 1+; Ovalocytes 1+; Total Cells Counted 100
[2019-11-04] MEDS: PANTOPRAZOLE 40 MG INJ IV SCH (21:56)
[2019-11-05] MEDS: SUCRALFATE 1 GM/10 ML ORAL LIQD PO SCH ×4 (00:25→17:29)
[2019-11-05] MEDS: DEXTROSE 5% IN WATER 1,000 ML IV SCH ×3 (00:30→16:30)
[2019-11-05] MEDS: PANTOPRAZOLE 40 MG INJ IV SCH (09:25)
[2019-11-05] MEDS: FLUoxetine 20 MG CAP PO SCH (09:26)
[2019-11-05] MEDS: CYPROHEPTADINE 4 MG TAB PO SCH ×3 (09:26→20:44)
[2019-11-05] MEDS: FOLIC ACID 1 MG TAB PO SCH (09:28)
[2019-11-05] MEDS: ALPRAZolam 0.25 MG TAB PO SCH ×2 (11:27→21:30)
[2019-11-05] MEDS: CYANOCOBALAMIN (VIT B-12) 1000 MCG/1 ML INJ SUB-Q SCH (11:33)
[2019-11-05] MEDS: THIAMINE 100 MG in SODIUM CHLORIDE 0.9% 50 ML IV SCH (11:37)
--- NOTE | 2019-11-05 12:27 | Progress Note ---
Assessment and Plan Patient is a 44 y/o woman w/ a h/o anxiety, depression, asthma, who p/w generalized weakness, decreased sensations in bilateral lower extremities in a proximal distal gradient, and imbalance. According to patient's clinical findings, it is possible that she has a generalized peripheral neuropathy. Given the fact that the patient has a history of gastric bypass 4 years ago, it is possible that the patient's current symptoms are due to macronutrient or micronutrient deficiency. To support this diagnosis, the patient also has pancytopenia, which may also be due to nutrient deficiency. Given her gradual progression of symptoms, it is less likely that she has AIDP or CIDP, however this is still in d/d. Plan: 1. Peripheral neuropathy: - MRI brain C/T/L spine unremarkable. - Given h/o gastric bypass, will check deficiency of: copper, Vitamin B1, zinc, vitamin D, magnesium, vitamin E, Vitamin B6 - Pending - Folate level decreased. Continue on replacement. Patient states she was not taking this regularly at home. - Discussed d/d of AIDP/CIDP, however patient stated that she did not want to undergo an LP at this time. She would prefer to consider it after lab results are available, and if they indicate alternative etiology of weakness. Discussed risk of not diagnosing cause of her weakness soon, and patient understood this, however did not consent to an LP at this time. - Recommend for patient to have EMG/NCS, which is not performed at [facility], and therefore will have to be done elsewhere. - Recommend PT/OT Thank you for allowing me to take part in the care of this patient. Mendoza Persaud MD Neurology Subjective Date of service: 11/05/19 Principal diagnosis: Peripheral neuropathy Interval history: No acute events overnight. Objective - Exam Narrative Exam: Patient is alert, awake, oriented 4, follows complex commands. PERRL, EOMI, VFF, no facial weakness noted, bilateral intact to light touch, no tongue atrophy or fasciculations noted. 4/5 strength noted in bilateral upper extremities, 3/5 strength noted in bilateral lower extremities. Noted to have decreased sensations in bilateral lower extremities with a proximal distal gradient. Noted to have decreased proprioception and vibration sensation in bilateral lower extremities in a proximal distal gradient. Bilaterally intact finger to nose, however unable to perform [id number] due to bilateral lower extremity weakness. 1+ reflexes in bilateral upper extremities and patellar re flexes, absent ankle reflexes bilaterally. - Vital Sign Vital Signs - 12hr 11/05/19 11/05/19 05:06 10:00 Temperature 98.7 F Pulse Rate 69 Respiratory 18 20 Rate Blood Pressure 90/56 O2 Sat by Pulse 98 Oximetry - General Apperance Constitutional: comfortable - EENT EENT: ATNC, PERRL, mucous membranes moist, hearing intact, vision intact - Respiratory Respiratory: lungs clear, normal breath sounds - Cardiovascular Cardiovascular: regular rate, normal S1, normal S2 Extremities: no clubbing, cyanosis, no inflammation - Gastrointestinal Gastrointestinal: normoactive bowel sounds, soft, non-tender - Integumentary Integumentary: normal - Musculoskeletal Musculoskeletal: no fluid collection, no pain - Psychiatric Psychiatric: mood/affect appropriate - Laboratory Findings CBC and BMP: 11/04/19 16:24 11/04/19 07:45 Abnormal Lab Findings: Abnormal Labs 11/01/19 11/01/19 11/01/19 16:50 16:50 16:50 WBC 1.9 L* RBC 2.82 L Hgb 10.0 L Hct MCV 108 H MCH 36 H RDW 17.9 H [place] % (Auto) Eos % (Auto) Seg Neuts % (Manual) Lymphocytes % (Manual) 45.0 H Monocytes % (Manual) 11.0 H Seg Neutrophils # Seg Neutrophils # Man 0.8 L Lymphocytes # (Manual) 0.9 L Percent Retic Chloride 108.7 H Carbon Dioxide 19 L Creatinine 0.3 L Glucose 60 L TIBC 173 L Transferrin 164 L Ferritin AST 49 H ALT 96 H Total Protein 5.6 L Albumin 2.7 L Prealbumin Vitamin B12 Folate Free T4 PTH Intact 11/01/19 11/01/19 11/02/19 17:01 17:02 05:56 WBC RBC Hgb Hct MCV MCH RDW [place] % (Auto) Eos % (Auto) Seg Neuts % (Manual) Lymphocytes % (Manual) Monocytes % (Manual) Seg Neutrophils # Seg Neutrophils # Man Lymphocytes # (Manual) Percent Retic Chloride Carbon Dioxide Creatinine Glucose TIBC Transferrin Ferritin 510.6 H AST ALT Total Protein Albumin Prealbumin Vitamin B12 > 2000 H Folate Free T4 PTH Intact 74.90 H 11/03/19 11/03/19 11/03/19 08:35 08:35 08:35 WBC 1.6 L* RBC 2.42 L Hgb 8.8 L Hct 26.4 L MCV 109 H MCH 36 H RDW 17.7 H [place] % (Auto) 12.3 H Eos % (Auto) 4.7 H Seg Neuts % (Manual) 28.0 L Lymphocytes % (Manual) 52.0 H Monocytes % (Manual) 16.0 H Seg Neutrophils # 0.5 L Seg Neutrophils # Man 0.4 L Lymphocytes # (Manual) 0.8 L Percent Retic 3.72 H Chloride 114.0 H Carbon Dioxide 18 L Creatinine 0.3 L Glucose TIBC Transferrin Ferritin AST 87 H ALT 102 H Total Protein 4.3 L D Albumin 2.3 L Prealbumin Vitamin B12 Folate Free T4 0.75 L PTH Intact 11/03/19 11/04/19 11/04/19 17:00 07:45 16:24 WBC 2.2 L 2.1 L RBC 2.64 L 2.49 L Hgb 9.4 L 8.8 L Hct 28.8 L 27.3 L MCV 109 H 109 H MCH 36 H 35 H RDW 18.1 H 18.1 H [place] % (Auto) Eos % (Auto) Seg Neuts % (Manual) 24.0 L 31.0 L Lymphocytes % (Manual) 65.0 H 49.0 H Monocytes % (Manual) 9.0 H 16.0 H Seg Neutrophils # Seg Neutrophils # Man 0.5 L 0.7 L Lymphocytes # (Manual) 1.0 L Percent Retic Chloride 111.6 H Carbon Dioxide 19 L Creatinine 0.3 L Glucose TIBC Transferrin Ferritin AST 78 H ALT 113 H Total Protein 4.7 L Albumin 2.1 L Prealbumin Vitamin B12 Folate Free T4 PTH Intact 11/04/19 11/05/19 19:48 09:04 WBC RBC Hgb Hct MCV MCH RDW [place] % (Auto) Eos % (Auto) Seg Neuts % (Manual) Lymphocytes % (Manual) Monocytes % (Manual) Seg Neutrophils # Seg Neutrophils # Man Lymphocytes # (Manual) Percent Retic Chloride Carbon Dioxide Creatinine Glucose TIBC Transferrin Ferritin AST ALT Total Protein Albumin Prealbumin 0.097 L Vitamin B12 Folate 5.77 L Free T4 PTH Intact
--- NOTE | 2019-11-05 18:43 | Progress Note ---
Assessment and Plan - Patient Problems (1) Dehydration Current Visit: Yes Status: Acute Plan to address problem: hydration see notes above. (2) Generalized weakness Current Visit: Yes Status: Acute Plan to address problem: Supportive care. she may benefit from in patient rehab. (3) Poor nutrition Current Visit: Yes Status: Acute Plan to address problem: appetite enhancement. (4) Anemia Current Visit: Yes Status: Acute Plan to address problem: monitor labs. Subjective Date of service: 11/05/19 Principal diagnosis: Peripheral neuropathy Interval history: Patient seen/examined, resting in bed. BP gets low to below 80, boluses of NS given.PT seen patient , and rec WALKER, instead of a cane.New labs ordered for am. Status changed due to clinical need. Work up incomplete. Patient seen/examined, resting in bed, c/o still quite fatigued, weakness. labs reviewed, AST, ALT worsened, Cl up WBC even lower. Will change fluid to D5W.Will give growth factor if wbc continues to go up.Will get neurology involved.Do US of the abdomen. patient seen/examined, resting in bed, labs reviewed, case d/w patient. Patient seen/examined, resting in bed, scan results reviewed, and case d/w the Neurology, and with patient.There is rare hemangioma on C5 bone, and steastosis of the Liver on US.She was also see by the gastric by pass surgeon, and appreciated.I will hope that she can go to inpatient rehab. Patient seen/examined, resting in bed, records reviewed, case d/w patient, and the family at the bed side.WBC improving.Neurology rec NCS/EMG, and these are not offered here, and will have to be done out patient.Awaiting inpatient rehab placement. Objective - Constitutional Vitals: Vital Signs - 12hr 11/05/19 11/05/19 11/05/19 10:00 11:08 11:17 Temperature Pulse Rate Respiratory 20 Rate Blood Pressure 92/64 99/65 O2 Sat by Pulse Oximetry 11/05/19 11/05/19 12:02 16:29 Temperature 98.5 F 98.9 F Pulse Rate 68 84 Respiratory 18 18 Rate Blood Pressure 90/64 91/66 O2 Sat by Pulse 97 97 Oximetry General appearance: Present: mild distress, cachectic - EENT Eyes: PERRL, EOM intact ENT: hearing intact, clear oral mucosa Ears: bilateral: normal - Neck Neck: supple, normal ROM - Respiratory Respiratory effort: normal Respiratory: bilateral: CTA - Breasts Breasts: deferred - Cardiovascular Rhythm: regular Heart Sounds: Present: S1 & S2. Absent: gallop, rub Extremities: pulses intact, No edema, normal color, Full ROM - Gastrointestinal General gastrointestinal: Present: soft, non-tender, non-distended, normal bowel sounds Rectal Exam: deferred - Genitourinary Female genitourinary: deferred - Integumentary Integumentary: clear, warm, dry - Musculoskeletal Musculoskeletal: 1, strength equal bilaterally - Neurologic Neurologic: moves all extremities - Psychiatric Psychiatric: memory intact, appropriate mood/affect, intact judgment & insight - Labs CBC & Chem 7: 11/04/19 16:24 11/04/19 07:45 Labs: Abnormal lab results 11/04/19 11/04/19 11/05/19 Range/Units 16:24 19:48 09:04 WBC 2.1 L (4.5-11.0) K/mm3 RBC 2.49 L (3.65-5.03) M/mm3 Hgb 8.8 L (10.1-14.3) gm/dl Hct 27.3 L (30.3-42.9) % MCV 109 H (79-97) fl MCH 35 H (28-32) pg RDW 18.1 H (13.2-15.2) % Seg Neuts % (Manual) 31.0 L (40.0-70.0) % Lymphocytes % (Manual) 49.0 H (13.4-35.0) % Monocytes % (Manual) 16.0 H (0.0-7.3) % Seg Neutrophils # Man 0.7 L (1.8-7.7) K/mm3 Lymphocytes # (Manual) 1.0 L (1.2-5.4) K/mm3 Prealbumin 0.097 L (0.200-0.400) g/L Folate 5.77 L (7.3-26.0) ng/mL
[2019-11-05] MEDS: PANTOPRAZOLE 40 MG TAB PO SCH (21:31)
[2019-11-06] MEDS: SUCRALFATE 1 GM/10 ML ORAL LIQD PO SCH ×5 (00:15→23:21)
[2019-11-06] MEDS: THIAMINE 100 MG TAB PO SCH (10:20)
[2019-11-06] MEDS: CYPROHEPTADINE 4 MG TAB PO SCH ×4 (10:20→21:36)
[2019-11-06] MEDS: PANTOPRAZOLE 40 MG TAB PO SCH ×2 (10:20→21:36)
[2019-11-06] MEDS: FOLIC ACID 1 MG TAB PO SCH (10:20)
[2019-11-06] MEDS: ALPRAZolam 0.25 MG TAB PO SCH ×2 (10:21→21:36)
[2019-11-06] MEDS: FLUoxetine 20 MG CAP PO SCH (10:21)
--- NOTE | 2019-11-06 11:25 | Progress Note ---
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 continue protonix and carafate for marginal ulcer. (at this time showing no signs of active bleeding or perforation) it takes at least 48 hours to get results from vitamins and metal panel. will follow up results and replace as necessary. add high protein shakes to meal trays and reinforced to patient that she needs to actively try to improve her overall nutrition by being compliant with consistent daily protein intake (100gm goal), and vitamins. Especially after she is discharged. Marginal ulcer will likely take longer than usual due to her malnutrition and her compliance with the medication is of utmost importance. Subjective Date of service: 11/06/19 Patient Reports: Positive: no new complaints, tolerating a regular diet (no acute events over night) Objective Vital Signs - 12hr 11/06/19 04:22 Temperature 98.0 F Pulse Rate 73 Respiratory 18 Rate Blood Pressure 88/56 O2 Sat by Pulse 96 Oximetry - General physical appearance well developed, no distress - Respiratory normal expansion, normal respiratory effort - Abdomen soft, not tender - Labs 11/04/19 16:24 11/04/19 07:45
--- NOTE | 2019-11-06 12:00 | Progress Note ---
Assessment and Plan Patient is a 44 y/o woman w/ a h/o anxiety, depression, asthma, who p/w generalized weakness, decreased sensations in bilateral lower extremities in a proximal distal gradient, and imbalance. According to patient's clinical findings, it is possible that she has a generalized peripheral neuropathy. Given the fact that the patient has a history of gastric bypass 4 years ago, it is possible that the patient's current symptoms are due to macronutrient or micronutrient deficiency. To support this diagnosis, the patient also has pancytopenia, which may also be due to nutrient deficiency. Given her gradual progression of symptoms, it is less likely that she has AIDP or CIDP, however this is still in d/d. Plan: 1. Peripheral neuropathy: - MRI brain C/T/L spine unremarkable. - Given h/o gastric bypass, will check deficiency of: copper, Vitamin B1, zinc, vitamin D, magnesium, vitamin E, Vitamin B6 - Pending - Folate level decreased. Continue on replacement. Patient states she was not taking this regularly at home. - Discussed d/d of AIDP/CIDP, however patient stated that she did not want to undergo an LP at this time. She would prefer to consider it after lab results are available, and if they indicate alternative etiology of weakness. Discussed risk of not diagnosing cause of her weakness soon, and patient understood this, however did not consent to an LP at this time. - Recommend for patient to have EMG/NCS, which is not performed at [facility], and therefore will have to be done elsewhere. - Recommend PT/OT Thank you for allowing me to take part in the care of this patient. Mendoza Persaud MD Neurology Subjective Date of service: 11/06/19 Principal diagnosis: Peripheral neuropathy Interval history: No acute events overnight. Objective - Exam Narrative Exam: Patient is alert, awake, oriented 4, follows complex commands. PERRL, EOMI, VFF, no facial weakness noted, bilateral intact to light touch, no tongue atrophy or fasciculations noted. 4/5 strength noted in bilateral upper extremities, 3/5 strength noted in bilateral lower extremities. Noted to have decreased sensations in bilateral lower extremities with a proximal distal gradient. Noted to have decreased proprioception and vibration sensation in bilateral lower extremities in a proximal distal gradient. Bilaterally intact finger to nose, however unable to perform [id number] due to bilateral lower extremity weakness. 1+ reflexes in bilateral upper extremities and patellar re flexes, absent ankle reflexes bilaterally. - Vital Sign Vital Signs - 12hr 11/06/19 04:22 Temperature 98.0 F Pulse Rate 73 Respiratory 18 Rate Blood Pressure 88/56 O2 Sat by Pulse 96 Oximetry - General Apperance Constitutional: comfortable - EENT EENT: ATNC, PERRL, mucous membranes moist - Respiratory Respiratory: lungs clear, normal breath sounds - Cardiovascular Cardiovascular: regular rate, normal S1, normal S2 Extremities: no peripheral edema bilat, no clubbing, cyanosis - Gastrointestinal Gastrointestinal: normoactive bowel sounds, soft, non-tender - Integumentary Integumentary: normal - Musculoskeletal Musculoskeletal: pain in joint, no fluid collection - Psychiatric Psychiatric: mood/affect appropriate - Laboratory Findings CBC and BMP: 11/04/19 16:24 11/04/19 07:45 Abnormal Lab Findings: Abnormal Labs 11/01/19 11/01/19 11/01/19 16:50 16:50 16:50 WBC 1.9 L* RBC 2.82 L Hgb 10.0 L Hct MCV 108 H MCH 36 H RDW 17.9 H Towner % (Auto) Eos % (Auto) Seg Neuts % (Manual) Lymphocytes % (Manual) 45.0 H Monocytes % (Manual) 11.0 H Seg Neutrophils # Seg Neutrophils # Man 0.8 L Lymphocytes # (Manual) 0.9 L Percent Retic Chloride 108.7 H Carbon Dioxide 19 L Creatinine 0.3 L Glucose 60 L TIBC 173 L Transferrin 164 L Ferritin AST 49 H ALT 96 H Total Protein 5.6 L Albumin 2.7 L Prealbumin Vitamin B12 Folate Free T4 PTH Intact 11/01/19 11/01/19 11/02/19 17:01 17:02 05:56 WBC RBC Hgb Hct MCV MCH RDW Towner % (Auto) Eos % (Auto) Seg Neuts % (Manual) Lymphocytes % (Manual) Monocytes % (Manual) Seg Neutrophils # Seg Neutrophils # Man Lymphocytes # (Manual) Percent Retic Chloride Carbon Dioxide Creatinine Glucose TIBC Transferrin Ferritin 510.6 H AST ALT Total Protein Albumin Prealbumin Vitamin B12 > 2000 H Folate Free T4 PTH Intact 74.90 H 11/03/19 11/03/19 11/03/19 08:35 08:35 08:35 WBC 1.6 L* RBC 2.42 L Hgb 8.8 L Hct 26.4 L MCV 109 H MCH 36 H RDW 17.7 H Towner % (Auto) 12.3 H Eos % (Auto) 4.7 H Seg Neuts % (Manual) 28.0 L Lymphocytes % (Manual) 52.0 H Monocytes % (Manual) 16.0 H Seg Neutrophils # 0.5 L Seg Neutrophils # Man 0.4 L Lymphocytes # (Manual) 0.8 L Percent Retic 3.72 H Chloride 114.0 H Carbon Dioxide 18 L Creatinine 0.3 L Glucose TIBC Transferrin Ferritin AST 87 H ALT 102 H Total Protein 4.3 L D Albumin 2.3 L Prealbumin Vitamin B12 Folate Free T4 0.75 L PTH Intact 11/03/19 11/04/19 11/04/19 17:00 07:45 16:24 WBC 2.2 L 2.1 L RBC 2.64 L 2.49 L Hgb 9.4 L 8.8 L Hct 28.8 L 27.3 L MCV 109 H 109 H MCH 36 H 35 H RDW 18.1 H 18.1 H Towner % (Auto) Eos % (Auto) Seg Neuts % (Manual) 24.0 L 31.0 L Lymphocytes % (Manual) 65.0 H 49.0 H Monocytes % (Manual) 9.0 H 16.0 H Seg Neutrophils # Seg Neutrophils # Man 0.5 L 0.7 L Lymphocytes # (Manual) 1.0 L Percent Retic Chloride 111.6 H Carbon Dioxide 19 L Creatinine 0.3 L Glucose TIBC Transferrin Ferritin AST 78 H ALT 113 H Total Protein 4.7 L Albumin 2.1 L Prealbumin Vitamin B12 Folate Free T4 PTH Intact 11/04/19 11/05/19 19:48 09:04 WBC RBC Hgb Hct MCV MCH RDW Towner % (Auto) Eos % (Auto) Seg Neuts % (Manual) Lymphocytes % (Manual) Monocytes % (Manual) Seg Neutrophils # Seg Neutrophils # Man Lymphocytes # (Manual) Percent Retic Chloride Carbon Dioxide Creatinine Glucose TIBC Transferrin Ferritin AST ALT Total Protein Albumin Prealbumin 0.097 L Vitamin B12 Folate 5.77 L Free T4 PTH Intact
--- NOTE | 2019-11-06 19:33 | Progress Note ---
Assessment and Plan - Patient Problems (1) Dehydration Current Visit: Yes Status: Acute Plan to address problem: hydration see notes above. (2) Generalized weakness Current Visit: Yes Status: Acute Plan to address problem: Supportive care. she may benefit from in patient rehab. (3) Poor nutrition Current Visit: Yes Status: Acute Plan to address problem: appetite enhancement. (4) Anemia Current Visit: Yes Status: Acute Plan to address problem: monitor labs. Subjective Date of service: 11/06/19 Principal diagnosis: Peripheral neuropathy Interval history: Patient seen/examined, resting in bed. BP gets low to below 80, boluses of NS given.PT seen patient , and rec WALKER, instead of a cane.New labs ordered for am. Status changed due to clinical need. Work up incomplete. Patient seen/examined, resting in bed, c/o still quite fatigued, weakness. labs reviewed, AST, ALT worsened, Cl up WBC even lower. Will change fluid to D5W.Will give growth factor if wbc continues to go up.Will get neurology involved.Do US of the abdomen. patient seen/examined, resting in bed, labs reviewed, case d/w patient. Patient seen/examined, resting in bed, scan results reviewed, and case d/w the Neurology, and with patient.There is rare hemangioma on C5 bone, and steastosis of the Liver on US.She was also see by the gastric by pass surgeon, and appreciated.I will hope that she can go to inpatient rehab. Patient seen/examined, resting in bed, records reviewed, case d/w patient, and the family at the bed side.WBC improving.Neurology rec NCS/EMG, and these are not offered here, and will have to be done out patient.Awaiting inpatient rehab placement. Patient seen/examined, resting in bed, had physical therapy today, awaiting inpatient rehab -ins approval.Continue with current management. Objective - Constitutional Vitals: Vital Signs - 12hr 11/06/19 11/06/19 11:52 16:40 Temperature 98.7 F 98.7 F Pulse Rate 75 92 H Respiratory 14 14 Rate Blood Pressure 87/62 90/62 O2 Sat by Pulse 99 97 Oximetry General appearance: Present: mild distress, cachectic - EENT Eyes: PERRL, EOM intact ENT: hearing intact, clear oral mucosa Ears: bilateral: normal - Neck Neck: supple, normal ROM - Respiratory Respiratory effort: normal Respiratory: bilateral: CTA - Breasts Breasts: deferred - Cardiovascular Rhythm: regular Heart Sounds: Present: S1 & S2. Absent: gallop, rub Extremities: pulses intact, No edema, normal color, Full ROM - Gastrointestinal General gastrointestinal: Present: soft, non-tender, non-distended, normal bowel sounds Rectal Exam: deferred - Genitourinary Female genitourinary: deferred - Integumentary Integumentary: clear, warm, dry - Musculoskeletal Musculoskeletal: 1, strength equal bilaterally - Neurologic Neurologic: moves all extremities - Psychiatric Psychiatric: memory intact, appropriate mood/affect, intact judgment & insight - Labs CBC & Chem 7: 11/04/19 16:24 11/04/19 07:45
[2019-11-06 21:55] LABS: ANA Screen, IFA Negative (Negative)
[2019-11-07] MEDS: SUCRALFATE 1 GM/10 ML ORAL LIQD PO SCH ×3 (05:27→17:00)
[2019-11-07] MEDS: CYPROHEPTADINE 4 MG TAB PO SCH ×2 (08:18→13:25)
[2019-11-07] MEDS: FOLIC ACID 1 MG TAB PO SCH (11:47)
[2019-11-07] MEDS: THIAMINE 100 MG TAB PO SCH (11:47)
[2019-11-07] MEDS: PANTOPRAZOLE 40 MG TAB PO SCH ×2 (11:47→21:27)
[2019-11-07] MEDS: FLUoxetine 20 MG CAP PO SCH (12:20)
[2019-11-07] MEDS: ALPRAZolam 0.25 MG TAB PO SCH ×2 (12:20→21:27)
--- NOTE | 2019-11-07 21:48 | Progress Note ---
Assessment and Plan - Patient Problems (1) Dehydration Current Visit: Yes Status: Acute Plan to address problem: hydration see notes above. (2) Generalized weakness Current Visit: Yes Status: Acute Plan to address problem: Supportive care. she may benefit from in patient rehab. (3) Poor nutrition Current Visit: Yes Status: Acute Plan to address problem: appetite enhancement. (4) Anemia Current Visit: Yes Status: Acute Plan to address problem: monitor labs. (5) Cachexia Current Visit: Yes Status: Acute Plan to address problem: This is with, and due to malnourished, present on admission. Subjective Date of service: 11/07/19 Principal diagnosis: Peripheral neuropathy Interval history: Patient seen/examined, resting in bed. BP gets low to below 80, boluses of NS given.PT seen patient , and rec WALKER, instead of a cane.New labs ordered for am. Status changed due to clinical need. Work up incomplete. Patient seen/examined, resting in bed, c/o still quite fatigued, weakness. labs reviewed, AST, ALT worsened, Cl up WBC even lower. Will change fluid to D5W.Will give growth factor if wbc continues to go up.Will get neurology involved.Do US of the abdomen. patient seen/examined, resting in bed, labs reviewed, case d/w patient. Patient seen/examined, resting in bed, scan results reviewed, and case d/w the Neurology, and with patient.There is rare hemangioma on C5 bone, and steastosis of the Liver on US.She was also see by the gastric by pass surgeon, and appreci ated.I will hope that she can go to inpatient rehab. Patient seen/examined, resting in bed, records reviewed, case d/w patient, and the family at the bed side.WBC improving.Neurology rec NCS/EMG, and these are not offered here, and will have to be done out patient.Awaiting inpatient rehab placement. Patient seen/examined, resting in bed, had physical therapy today, awaiting inpatient rehab -ins approval.Continue with current management. Patient seen/examined, resting in bed, still awaiting inpatient rehab placement.BMD will be done out patient. Objective - Constitutional Vitals: Vital Signs - 12hr 11/07/19 11/07/19 11/07/19 11:49 15:59 20:47 Temperature 98.0 F 98.6 F Pulse Rate 83 82 Respiratory 16 16 Rate Respiratory 16 Rate [Bilateral Hip] Blood Pressure 96/67 86/61 Blood Pressure [Right] O2 Sat by Pulse 100 98 Oximetry 11/07/19 21:23 Temperature 98.5 F Pulse Rate 78 Respiratory 17 Rate Respiratory Rate [Bilateral Hip] Blood Pressure Blood Pressure 91/58 [Right] O2 Sat by Pulse 100 Oximetry General appearance: Present: mild distress, well-nourished - EENT Eyes: PERRL, EOM intact ENT: hearing intact, clear oral mucosa Ears: bilateral: normal - Neck Neck: supple, normal ROM - Respiratory Respiratory effort: normal Respiratory: bilateral: CTA - Breasts Breasts: deferred - Cardiovascular Rhythm: regular Heart Sounds: Present: S1 & S2. Absent: gallop, rub Extremities: pulses intact, No edema, normal color, Full ROM - Gastrointestinal General gastrointestinal: Present: soft, non-tender, non-distended, normal bowel sounds Rectal Exam: deferred - Genitourinary Female genitourinary: deferred - Integumentary Integumentary: clear, warm, dry - Musculoskeletal Musculoskeletal: 1, strength equal bilaterally - Neurologic Neurologic: moves all extremities - Psychiatric Psychiatric: memory intact, appropriate mood/affect, intact judgment & insight - Labs CBC & Chem 7: 11/04/19 16:24 11/04/19 07:45 Labs: Abnormal lab results 11/04/19 11/05/19 Range/Units 19:48 09:04 Copper <5 L (70-175) mcg/dL Plasma Zinc 30 L (60-130) mcg/dL
[2019-11-08] MEDS: CYPROHEPTADINE 4 MG TAB PO SCH ×4 (06:56→21:15)
[2019-11-08] MEDS: SUCRALFATE 1 GM/10 ML ORAL LIQD PO SCH ×5 (07:01→23:03)
[2019-11-08] MEDS: FOLIC ACID 1 MG TAB PO SCH (09:57)
[2019-11-08] MEDS: THIAMINE 100 MG TAB PO SCH (09:57)
[2019-11-08] MEDS: PANTOPRAZOLE 40 MG TAB PO SCH ×2 (09:57→21:18)
[2019-11-08] MEDS: FLUoxetine 20 MG CAP PO SCH (09:59)
[2019-11-08] MEDS ORDERED: ZINC SULFATE 220 MG CAP PO SCH ×2 (10:00→13:00)
[2019-11-08] MEDS: ALPRAZolam 0.25 MG TAB PO SCH ×2 (10:00→21:18)
[2019-11-08] MEDS ORDERED: MULTIVITAMINS,THER W-MINERALS TAB PO SCH (12:00)
[2019-11-08] MEDS: MULTIVITAMINS,THER W-MINERALS TAB PO SCH (12:56)
[2019-11-08 14:07] LABS: Vitamin D, 25-OH, D2 <4 ng/mL
--- NOTE | 2019-11-08 15:55 | Progress Note ---
Assessment and Plan Patient is a 44 y/o woman w/ a h/o anxiety, depression, asthma, who p/w generalized weakness, decreased sensations in bilateral lower extremities in a proximal distal gradient, and imbalance. According to patient's clinical findings, it is possible that she has a generalized peripheral neuropathy. Given the fact that the patient has a history of gastric bypass 4 years ago, it is possible that the patient's current symptoms are due to macronutrient or micronutrient deficiency. To support this diagnosis, the patient also has pancytopenia, which may also be due to nutrient deficiency. Given her gradual progression of symptoms, it is less likely that she has AIDP or CIDP, however this is still in d/d. Plan: 1. Peripheral neuropathy: - MRI brain C/T/L spine unremarkable. - Given h/o gastric bypass, will check deficiency of: Vitamin B1, vitamin D, vitamin E, Vitamin B6 - Pending - Folate level decreased. Continue on replacement. Patient states she was not taking this regularly at home. - Copper and zinc levels found to be low. This may be etiology of neurologic symptoms. Will begin replacement. Discussed with pharmacist regarding recommended dose, and was told that copper was not available in pharmacy at this time and will be ordered, and likely available next week. In the mean time, will start multivitamin, which contains copper. Once copper arrives, recommend for patient to be started on copper and zinc replacement. Would not recommend only starting zinc, as this may worsen copper deficiency if copper is not bar[place] pplemented. - Discussed d/d of AIDP/CIDP, however patient stated that she did not want to undergo an LP at this time. She would prefer to consider it after lab results are available, and if they indicate alternative etiology of weakness. Discussed risk of not diagnosing cause of her weakness soon, and patient understood this, however did not consent to an LP at this time. - Recommend for patient to have EMG/NCS, which is not performed at [facility], and therefore will have to be done elsewhere, outpatient. - Recommend PT/OT - Will sign off, as I am not covering neurology service over the weekend. Recommend consult neuroligst covering service over the weekend for further neurologic monitoring and management. Thank you for allowing me to take part in the care of this patient. Mendoza Persaud MD Neurology Subjective Date of service: 01/17/20 Principal diagnosis: Peripheral neuropathy Interval history: No acute events overnight. Objective - Exam Narrative Exam: Patient is alert, awake, oriented 4, follows complex commands. PERRL, EOMI, VFF, no facial weakness noted, bilateral intact to light touch, no tongue atrophy or fasciculations noted. 4/5 strength noted in bilateral upper extremities, 3/5 strength noted in bilateral lower extremities. Noted to have decreased sensations in bilateral lower extremities with a proximal distal gradient. Noted to have decreased proprioception and vibration sensation in bilateral lower extremities in a proximal distal gradient. Bilaterally intact finger to nose, however unable to perform [id number] due to bilateral lower extremity weakness. 1+ reflexes in bilateral upper extremities and patellar reflexes, absent ankle reflexes bilaterally. - Vital Sign Vital Signs - 12hr 11/08/19 11/08/19 06:13 12:15 Temperature 98.3 F 97.9 F Pulse Rate 82 86 Respiratory 16 16 Rate Blood Pressure 93/60 90/66 O2 Sat by Pulse 97 100 Oximetry - General Apperance Constitutional: comfortable - EENT EENT: ATNC, PERRL, mucous membranes moist, hearing intact, vision intact - Respiratory Respiratory: lungs clear, normal breath sounds - Cardiovascular Cardiovascular: regular rate, normal S1, normal S2 Extremities: no clubbing, cyanosis, no inflammation - Gastrointestinal Gastrointestinal: normoactive bowel sounds, soft, non-tender - Integumentary Integumentary: normal - Musculoskeletal Musculoskeletal: no fluid collection, no pain - Psychiatric Psychiatric: mood/affect appropriate - Laboratory Findings CBC and BMP: 11/04/19 16:24 11/04/19 07:45 Abnormal Lab Findings: Abnormal Labs 11/01/19 11/01/19 11/01/19 16:50 16:50 16:50 WBC 1.9 L* RBC 2.82 L Hgb 10.0 L Hct MCV 108 H MCH 36 H RDW 17.9 H [place] % (Auto) Eos % (Auto) Seg Neuts % (Manual) Lymphocytes % (Manual) 45.0 H Monocytes % (Manual) 11.0 H Seg Neutrophils # Seg Neutrophils # Man 0.8 L Lymphocytes # (Manual) 0.9 L Percent Retic Chloride 108.7 H Carbon Dioxide 19 L Creatinine 0.3 L Glucose 60 L TIBC 173 L Transferrin 164 L Ferritin AST 49 H ALT 96 H Total Protein 5.6 L Albumin 2.7 L Prealbumin Vitamin B12 Folate Free T4 PTH Intact Copper Plasma Zinc 11/01/19 11/01/19 11/02/19 17:01 17:02 05:56 WBC RBC Hgb Hct MCV MCH RDW [place] % (Auto) Eos % (Auto) Seg Neuts % (Manual) Lymphocytes % (Manual) Monocytes % (Manual) Seg Neutrophils # Seg Neutrophils # Man Lymphocytes # (Manual) Percent Retic Chloride Carbon Dioxide Creatinine Glucose TIBC Transferrin Ferritin 510.6 H AST ALT Total Protein Albumin Prealbumin Vitamin B12 > 2000 H Folate Free T4 PTH Intact 74.90 H Copper Plasma Zinc 11/03/19 11/03/19 11/03/19 08:35 08:35 08:35 WBC 1.6 L* RBC 2.42 L Hgb 8.8 L Hct 26.4 L MCV 109 H MCH 36 H RDW 17.7 H [place] % (Auto) 12.3 H Eos % (Auto) 4.7 H Seg Neuts % (Manual) 28.0 L Lymphocytes % (Manual) 52.0 H Monocytes % (Manual) 16.0 H Seg Neutrophils # 0.5 L Seg Neutrophils # Man 0.4 L Lymphocytes # (Manual) 0.8 L Percent Retic 3.72 H Chloride 114.0 H Carbon Dioxide 18 L Creatinine 0.3 L Glucose TIBC Transferrin Ferritin AST 87 H ALT 102 H Total Protein 4.3 L D Albumin 2.3 L Prealbumin Vitamin B12 Folate Free T4 0.75 L PTH Intact Copper Plasma Zinc 11/03/19 11/04/19 11/04/19 17:00 07:45 16:24 WBC 2.2 L 2.1 L RBC 2.64 L 2.49 L Hgb 9.4 L 8.8 L Hct 28.8 L 27.3 L MCV 109 H 109 H MCH 36 H 35 H RDW 18.1 H 18.1 H [place] % (Auto) Eos % (Auto) Seg Neuts % (Manual) 24.0 L 31.0 L Lymphocytes % (Manual) 65.0 H 49.0 H Monocytes % (Manual) 9.0 H 16.0 H Seg Neutrophils # Seg Neutrophils # Man 0.5 L 0.7 L Lymphocytes # (Manual) 1.0 L Percent Retic Chloride 111.6 H Carbon Dioxide 19 L Creatinine 0.3 L Glucose TIBC Transferrin Ferritin AST 78 H ALT 113 H Total Protein 4.7 L Albumin 2.1 L Prealbumin Vitamin B12 Folate Free T4 PTH Intact Copper Plasma Zinc 11/04/19 11/04/19 11/05/19 19:48 19:48 09:04 WBC RBC Hgb Hct MCV MCH RDW [place] % (Auto) Eos % (Auto) Seg Neuts % (Manual) Lymphocytes % (Manual) Monocytes % (Manual) Seg Neutrophils # Seg Neutrophils # Man Lymphocytes # (Manual) Percent Retic Chloride Carbon Dioxide Creatinine Glucose TIBC Transferrin Ferritin AST ALT Total Protein Albumin Prealbumin 0.097 L Vitamin B12 Folate 5.77 L Free T4 PTH Intact Copper <5 L Plasma Zinc 11/05/19 09:04 WBC RBC Hgb Hct MCV MCH RDW [place] % (Auto) Eos % (Auto) Seg Neuts % (Manual) Lymphocytes % (Manual) Monocytes % (Manual) Seg Neutrophils # Seg Neutrophils # Man Lymphocytes # (Manual) Percent Retic Chloride Carbon Dioxide Creatinine Glucose TIBC Transferrin Ferritin AST ALT Total Protein Albumin Prealbumin Vitamin B12 Folate Free T4 PTH Intact Copper Plasma Zinc 30 L
--- NOTE | 2019-11-09 00:29 | Progress Note ---
Assessment and Plan - Patient Problems (1) Dehydration Current Visit: Yes Status: Acute Plan to address problem: hydration see notes above. patient encouraged to drink fluids. (2) Generalized weakness Current Visit: Yes Status: Acute Plan to address problem: Supportive care. she may benefit from in patient rehab. (3) Poor nutrition Current Visit: Yes Status: Acute Plan to address problem: appetite enhancement. (4) Anemia Current Visit: Yes Status: Acute Plan to address problem: monitor labs. (5) Cachexia Current Visit: Yes Status: Acute Plan to address problem: This is with, and due to malnourished, present on admission. Subjective Date of service: 11/08/19 Principal diagnosis: Peripheral neuropathy Interval history: Patient seen/examined, resting in bed. BP gets low to below 80, boluses of NS given.PT seen patient , and rec WALKER, instead of a cane.New labs ordered for am. Status changed due to clinical need. Work up incomplete. Patient seen/examined, resting in bed, c/o still quite fatigued, weakness. labs reviewed, AST, ALT worsened, Cl up WBC even lower. Will change fluid to D5W.Will give growth factor if wbc continues to go up.Will get neurology involved.Do US of the abdomen. patient seen/examined, resting in bed, labs reviewed, case d/w patient. Patient seen/examined, resting in bed, scan results reviewed, and case d/w the Neurology, and with patient.There is rare hemangioma on C5 bone, and steastosis of the Liver on US.She was also see by the gastric by pass surgeon, and appreciated.I will hope that she can go to inpatient rehab. Patient seen/examined, resting in bed, records reviewed, case d/w patient, and the family at the bed side.WBC improving.Neurology rec NCS/EMG, and these are not offered here, and will have to be done out patient.Awaiting inpatient rehab placement. Patient seen/examined, resting in bed, had physical therapy today, awaiting inpatient rehab -ins approval.Continue with current management. Patient seen/examined, resting in bed, still awaiting inpatient rehab placement.BMD will be done out patient. This is a late entry. Patient resting in bed, records/notes reviewed. agree with neurology, regarding Vit. i had already replacing VIt D, B12, folate out patient, and here inpatient. ZINC/Copper will be added, once ready.As my conversation with rn field case manager, OT to eval/tx. most likely ins not approving inpatient rehab. Objective - Constitutional Vitals: Vital Signs - 12hr 11/08/19 17:39 Temperature 98.3 F Pulse Rate 92 H Respiratory 14 Rate Blood Pressure 85/58 O2 Sat by Pulse 98 Oximetry General appearance: Present: mild distress, cachectic - EENT Eyes: PERRL, EOM intact ENT: hearing intact, clear oral mucosa Ears: bilateral: normal - Neck Neck: supple, normal ROM - Respiratory Respiratory effort: normal Respiratory: bilateral: CTA - Breasts Breasts: deferred - Cardiovascular Rhythm: regular Heart Sounds: Present: S1 & S2. Absent: gallop, rub Extremities: pulses intact, No edema, normal color, Full ROM - Gastrointestinal General gastrointestinal: Present: soft, non-tender, non-distended, normal bowel sounds Rectal Exam: deferred - Genitourinary Female genitourinary: deferred - Integumentary Integumentary: clear, warm, dry - Musculoskeletal Musculoskeletal: 1, strength equal bilaterally - Neurologic Neurologic: moves all extremities - Psychiatric Psychiatric: memory intact, appropriate mood/affect, intact judgment & insight - Labs CBC & Chem 7: 11/04/19 16:24 11/04/19 07:45
[2019-11-09] MEDS: SUCRALFATE 1 GM/10 ML ORAL LIQD PO SCH ×5 (06:49→23:57)
[2019-11-09] MEDS: MULTIVITAMINS,THER W-MINERALS TAB PO SCH (09:34)
[2019-11-09] MEDS: THIAMINE 100 MG TAB PO SCH (09:34)
[2019-11-09] MEDS: PANTOPRAZOLE 40 MG TAB PO SCH ×2 (09:34→22:12)
[2019-11-09] MEDS: FOLIC ACID 1 MG TAB PO SCH (09:34)
[2019-11-09] MEDS: ALPRAZolam 0.25 MG TAB PO SCH ×2 (09:35→22:12)
[2019-11-09] MEDS: FLUoxetine 20 MG CAP PO SCH (09:35)
[2019-11-09] MEDS: CYPROHEPTADINE 4 MG TAB PO SCH ×3 (09:35→22:12)
--- NOTE | 2019-11-09 15:48 | Progress Note ---
Assessment and Plan - Patient Problems (1) Dehydration Current Visit: Yes Status: Acute Plan to address problem: hydration see notes above. patient encouraged to drink fluids. (2) Generalized weakness Current Visit: Yes Status: Acute Plan to address problem: Supportive care. she may benefit from in patient rehab. (3) Poor nutrition Current Visit: Yes Status: Acute Plan to address problem: appetite enhancement. (4) Anemia Current Visit: Yes Status: Acute Plan to address problem: monitor labs. (5) Cachexia Current Visit: Yes Status: Acute Plan to address problem: This is with, and due to malnourished, present on admission. Subjective Date of service: 11/09/19 Principal diagnosis: Peripheral neuropathy Interval history: Patient seen/examined, resting in bed. BP gets low to below 80, boluses of NS given.PT seen patient , and rec WALKER, instead of a cane.New labs ordered for am. Status changed due to clinical need. Work up incomplete. Patient seen/examined, resting in bed, c/o still quite fatigued, weakness. labs reviewed, AST, ALT worsened, Cl up WBC even lower. Will change fluid to D5W.Will give growth factor if wbc continues to go up.Will get neurology involved.Do US of the abdomen. patient seen/examined, resting in bed, labs reviewed, case d/w patient. Patient seen/examined, resting in bed, scan results reviewed, and case d/w the Neurology, and with patient.There is rare hemangioma on C5 bone, and steastosis of the Liver on US.She was also see by the gastric by pass surgeon, and appreciated.I will hope that she can go to inpatient rehab. Patient seen/examined, resting in bed, records reviewed, case d/w patient, and the family at the bed side.WBC improving.Neurology rec NCS/EMG, and these are not offered here, and will have to be done out patient.Awaiting inpatient rehab placement. Patient seen/examined, resting in bed, had physical therapy today, awaiting inpatient rehab -ins approval.Continue with current management. Patient seen/examined, resting in bed, still awaiting inpatient rehab placement.BMD will be done out patient. This is a late entry. Patient resting in bed, records/notes reviewed. agree with neurology, regarding Vit. i had already replacing VIt D, B12, folate out patient, and here inpatient. ZINC/Copper will be added, once ready.As my conversation with case coordinator, OT to eval/tx. most likely ins not approving inpatient rehab. Patient seen/resting in bed, no new issues at this time. Insurance asked to check back in on ,to see if will approve out patient rehab, otherwise,will do out patient PT/OT. Objective - Constitutional Vitals: Vital Signs - 12hr 11/09/19 11/09/19 04:06 11:48 Temperature 98.4 F 98.3 F Pulse Rate 81 74 Respiratory 18 14 Rate Blood Pressure 92/62 93/66 O2 Sat by Pulse 99 100 Oximetry General appearance: Present: mild distress, well-nourished - EENT Eyes: PERRL, EOM intact ENT: hearing intact, clear oral mucosa Ears: bilateral: normal - Neck Neck: supple, normal ROM - Respiratory Respiratory effort: normal Respiratory: bilateral: CTA - Breasts Breasts: deferred - Cardiovascular Rhythm: regular Heart Sounds: Present: S1 & S2. Absent: gallop, rub Extremities: pulses intact, No edema, normal color, Full ROM - Gastrointestinal General gastrointestinal: Present: soft, non-tender, non-distended, normal bowel sounds Rectal Exam: deferred - Genitourinary Female genitourinary: deferred - Integumentary Integumentary: clear, warm, dry - Musculoskeletal Musculoskeletal: 1, strength equal bilaterally - Neurologic Neurologic: moves all extremities - Psychiatric Psychiatric: memory intact, appropriate mood/affect, intact judgment & insight - Labs CBC & Chem 7: 11/04/19 16:24 11/04/19 07:45
[2019-11-10] MEDS: SUCRALFATE 1 GM/10 ML ORAL LIQD PO SCH ×4 (05:33→21:32)
[2019-11-10] MEDS: MULTIVITAMINS,THER W-MINERALS TAB PO SCH (09:22)
[2019-11-10] MEDS: FOLIC ACID 1 MG TAB PO SCH (09:22)
[2019-11-10] MEDS: PANTOPRAZOLE 40 MG TAB PO SCH ×2 (09:22→21:31)
[2019-11-10] MEDS: THIAMINE 100 MG TAB PO SCH (09:22)
[2019-11-10] MEDS: FLUoxetine 20 MG CAP PO SCH (09:27)
[2019-11-10] MEDS: ALPRAZolam 0.25 MG TAB PO SCH ×2 (09:28→21:31)
[2019-11-10] MEDS: CYPROHEPTADINE 4 MG TAB PO SCH ×3 (09:28→21:31)
--- NOTE | 2019-11-10 16:23 | Progress Note ---
Assessment and Plan - Patient Problems (1) Dehydration Current Visit: Yes Status: Acute Plan to address problem: hydration see notes above. patient encouraged to drink fluids. (2) Generalized weakness Current Visit: Yes Status: Acute Plan to address problem: Supportive care. she may benefit from in patient rehab. (3) Poor nutrition Current Visit: Yes Status: Acute Plan to address problem: appetite enhancement. (4) Anemia Current Visit: Yes Status: Acute Plan to address problem: monitor labs. no new labs. (5) Cachexia Current Visit: Yes Status: Acute Plan to address problem: This is with, and due to malnourished, present on admission. Subjective Date of service: 11/10/19 Principal diagnosis: Peripheral neuropathy Interval history: Patient seen/examined, resting in bed. BP gets low to below 80, boluses of NS given.PT seen patient , and rec WALKER, instead of a cane.New labs ordered for am. Status changed due to clinical need. Work up incomplete. Patient seen/examined, resting in bed, c/o still quite fatigued, weakness. labs reviewed, AST, ALT worsened, Cl up WBC even lower. Will change fluid to D5W.Will give growth factor if wbc continues to go up.Will get neurology involved.Do US of the abdomen. patient seen/examined, resting in bed, labs reviewed, case d/w patient. Patient seen/examined, resting in bed, scan results reviewed, and case d/w the Neurology, and with patient.There is rare hemangioma on C5 bone, and steastosis of the Liver on US.She was also see by the gastric by pass surgeon, and appreciated.I will hope that she can go to inpatient rehab. Patient seen/examined, resting in bed, records reviewed, case d/w patient, and the family at the bed side.WBC improving.Neurology rec NCS/EMG, and these are not offered here, and will have to be done out patient.Awaiting inpatient rehab placement. Patient seen/examined, resting in bed, had physical therapy today, awaiting inpatient rehab -ins approval.Continue with current management. Patient seen/examined, resting in bed, still awaiting inpatient rehab placement.BMD will be done out patient. This is a late entry. Patient resting in bed, records/notes reviewed. agree with neurology, regarding Vit. i had already replacing VIt D, B12, folate out patient, and here inpatient. ZINC/Copper will be added, once ready.As my conversation with case briefer, OT to eval/tx. most likely ins not approving inpatient rehab. Patient seen/resting in bed, no new issues at this time. Insurance asked to frandy ck back in on ,to see if will approve out patient rehab, otherwise,will do out patient PT/OT. Patient seen/examined, resting in bed, records reviewed will follow the same plan per ins. Objective - Constitutional Vitals: Vital Signs - 12hr 11/10/19 11/10/19 04:54 12:10 Temperature 98.2 F 98.4 F Pulse Rate 83 Respiratory 16 16 Rate Blood Pressure 92/62 101/73 O2 Sat by Pulse 97 Oximetry General appearance: Present: mild distress, cachectic - EENT Eyes: PERRL, EOM intact ENT: hearing intact, clear oral mucosa Ears: bilateral: normal - Neck Neck: supple, normal ROM - Respiratory Respiratory effort: normal Respiratory: bilateral: CTA - Breasts Breasts: deferred - Cardiovascular Rhythm: regular Heart Sounds: Present: S1 & S2. Absent: gallop, rub Extremities: pulses intact, No edema, normal color, Full ROM - Gastrointestinal General gastrointestinal: Present: soft, non-tender, non-distended, normal bowel sounds Rectal Exam: deferred - Genitourinary Female genitourinary: deferred - Integumentary Integumentary: clear, warm, dry - Musculoskeletal Musculoskeletal: 1, strength equal bilaterally - Neurologic Neurologic: moves all extremities - Psychiatric Psychiatric: memory intact, appropriate mood/affect, intact judgment & insight - Labs CBC & Chem 7: 11/04/19 16:24 11/04/19 07:45 Labs: Abnormal lab results 11/04/19 11/05/19 Range/Units 19:48 09:04 Vitamin A 14 L (38-98) mcg/dL Vitamin E 4.9 L (5.7-19.9) mg/L
[2019-11-11] MEDS: SUCRALFATE 1 GM/10 ML ORAL LIQD PO SCH ×4 (03:02→20:09)
[2019-11-11] MEDS: CYPROHEPTADINE 4 MG TAB PO SCH ×3 (08:24→22:12)
[2019-11-11] MEDS: THIAMINE 100 MG TAB PO SCH (10:40)
[2019-11-11] MEDS: MULTIVITAMINS,THER W-MINERALS TAB PO SCH (10:41)
[2019-11-11] MEDS: FOLIC ACID 1 MG TAB PO SCH (10:46)
[2019-11-11] MEDS: PANTOPRAZOLE 40 MG TAB PO SCH ×2 (10:46→22:07)
[2019-11-11] MEDS: ALPRAZolam 0.25 MG TAB PO SCH ×2 (10:47→22:07)
[2019-11-11] MEDS: FLUoxetine 20 MG CAP PO SCH (10:47)
--- NOTE | 2019-11-11 14:05 | Progress Note ---
Assessment and Plan - Patient Problems (1) Dehydration Current Visit: Yes Status: Acute Plan to address problem: hydration see notes above. patient encouraged to drink fluids. (2) Generalized weakness Current Visit: Yes Status: Acute Plan to address problem: Supportive care. she may benefit from in patient rehab. (3) Poor nutrition Current Visit: Yes Status: Acute Plan to address problem: appetite enhancement. (4) Anemia Current Visit: Yes Status: Acute Plan to address problem: monitor labs. no new labs. (5) Cachexia Current Visit: Yes Status: Acute Plan to address problem: This is with, and due to malnourished, present on admission. Subjective Date of service: 11/11/19 Principal diagnosis: Peripheral neuropathy Interval history: Patient seen/examined, resting in bed. BP gets low to below 80, boluses of NS given.PT seen patient , and rec WALKER, instead of a cane.New labs ordered for am. Status changed due to clinical need. Work up incomplete. Patient seen/examined, resting in bed, c/o still quite fatigued, weakness. labs reviewed, AST, ALT worsened, Cl up WBC even lower. Will change fluid to D5W.Will give growth factor if wbc continues to go up.Will get neurology involved.Do US of the abdomen. patient seen/examined, resting in bed, labs reviewed, case d/w patient. Patient seen/examined, resting in bed, scan results reviewed, and case d/w the Neurology, and with patient.There is rare hemangioma on C5 bone, and steastosis of the Liver on US.She was also see by the gastric by pass surgeon, and appreciated.I will hope that she can go to inpatient rehab. Patient seen/examined, resting in bed, records reviewed, case d/w patient, and the family at the bed side.WBC improving.Neurology rec NCS/EMG, and these are not offered here, and will have to be done out patient.Awaiting inpatient rehab placement. Patient seen/examined, resting in bed, had physical therapy today, awaiting inpatient rehab -ins approval.Continue with current management. Patient seen/examined, resting in bed, still awaiting inpatient rehab placement.BMD will be done out patient. This is a late entry. Patient resting in bed, records/notes reviewed. agree with neurology, regarding Vit. i had already replacing VIt D, B12, folate out patient, and here inpatient. ZINC/Copper will be added, once ready.As my conversation with complex case manager, OT to eval/tx. most likely ins not approving inpatient rehab. Patient seen/resting in bed, no new issues at this time. Insurance asked to frandy ck back in on ,to see if will approve out patient rehab, otherwise,will do out patient PT/OT. Patient seen/examined, resting in bed, records reviewed will follow the same plan per ins. Patient seen, resting in bed, NAD. Still awaiting OT eval /tx. Objective - Constitutional Vitals: Vital Signs - 12hr 11/11/19 11/11/19 10:38 11:32 Temperature 98.4 F Pulse Rate 91 H 110 H Respiratory 19 Rate Blood Pressure 103/62 87/59 O2 Sat by Pulse 97 100 Oximetry General appearance: Present: no acute distress, other (protien calore malnurishment.) - EENT Eyes: PERRL, EOM intact ENT: hearing intact, clear oral mucosa Ears: bilateral: normal - Neck Neck: supple, normal ROM - Respiratory Respiratory effort: normal Respiratory: bilateral: CTA - Breasts Breasts: deferred - Cardiovascular Rhythm: regular Heart Sounds: Present: S1 & S2. Absent: gallop, rub Extremities: pulses intact, No edema, normal color, Full ROM - Gastrointestinal General gastrointestinal: Present: soft, non-tender, non-distended, normal bowel sounds Rectal Exam: deferred - Genitourinary Female genitourinary: deferred - Integumentary Integumentary: clear, warm, dry - Musculoskeletal Musculoskeletal: 1, strength equal bilaterally - Neurologic Neurologic: moves all extremities - Psychiatric Psychiatric: memory intact, appropriate mood/affect, intact judgment & insight - Labs CBC & Chem 7: 11/04/19 16:24 11/04/19 07:45 Labs: Abnormal lab results 11/04/19 Range/Units 19:48 Vitamin B1 1107 H (8-30) nmol/L
[2019-11-12] MEDS: SUCRALFATE 1 GM/10 ML ORAL LIQD PO SCH ×3 (04:09→13:45)
[2019-11-12 07:21] LABS: Hematocrit 27.9 % (30.3-42.9); Hemoglobin 9.5 gm/dl (10.1-14.3)
[2019-11-12] MEDS: CYPROHEPTADINE 4 MG TAB PO SCH ×2 (09:33→16:04)
[2019-11-12] MEDS: FLUoxetine 20 MG CAP PO SCH (09:44)
[2019-11-12] MEDS: ALPRAZolam 0.25 MG TAB PO SCH (09:45)
[2019-11-12] MEDS ORDERED: CYANOCOBALAMIN (VIT B-12) 1000 MCG/1 ML INJ SUB-Q SCH (10:00)
[2019-11-12] MEDS: PANTOPRAZOLE 40 MG TAB PO SCH (10:08)
[2019-11-12] MEDS: FOLIC ACID 1 MG TAB PO SCH (10:08)
[2019-11-12] MEDS: MULTIVITAMINS,THER W-MINERALS TAB PO SCH (10:18)
[2019-11-12] MEDS: THIAMINE 100 MG TAB PO SCH (10:20)
[2019-11-12 13:26] VITALS: BP 89/55
--- NOTE | 2019-11-12 20:18 | Discharge Summary ---
Providers - Providers Date of Admission: 11/04/19 16:16 Date of discharge: 11/12/19 Attending physician: SADI CEDENO 11/01/19 12:58 Physical Therapy Evaluation and Treat [CONS] Routine Comment: Reason For Exam: GENERALIZED WEAKNESS 11/01/19 21:00 Consult to Physician [CONS] Routine Comment: Consulting Provider: PHOENIX DIAS Physician Instructions: Reason For Exam: gastric bypass related GJ ulcer. 11/04/19 05:00 Consult to Physician [CONS] Routine Comment: Consulting Provider: ADRIAN OCAMPO Physician Instructions: Reason For Exam: global neuropathy/ difficulty ambulating. 11/08/19 11:44 Occupational Therapy Evaluate and Treat [CONS] Routine Comment: Reason For Exam: For SNF or Acute rehab placement. Primary care physician: SADI CEDENO Hospitalization Reason for admission: Severe myopathy/dehydration/poor nutrition. Condition: Stable Pertinent studies: MRI, Hospital course: Patient presented to the office, with CC as above, unable to control, at home, hece admitted to the hospital for proper w/up, and management. Patient was seen by neurology, and gastric bypass surgery. It was felt ,that one of her problems, was severe Vit deficiencies particularly B12, and heavy metals, all which were replaced.patient also started pt/ot, and will continue these at home.She is seen tonight, and doing well, and as such, will be d/c home tonight., with instructions. Disposition: - TO HOME OR SELFCARE - Discharge Diagnoses (1) Dehydration Status: Resolved (2) Generalized weakness Status: Acute (3) Poor nutrition Status: Chronic (4) Anemia Status: Chronic (5) Cachexia Status: Chronic Core Measure Documentation - Palliative Care Palliative Care/ Comfort Measures: Not Applicable - Core Measures Any of the following diagnoses?: none Exam - Constitutional Vitals: Temp Pulse Resp BP Pulse Ox 98.2 F 88 19 89/55 98 11/12/19 11:47 11/12/19 11:47 11/12/19 11:47 11/12/19 11:47 11/12/19 11:47 General appearance: Present: no acute distress, well-nourished - EENT Eyes: Present: PERRL ENT: hearing intact, clear oral mucosa - Neck Neck: Present: supple, normal ROM - Respiratory Respiratory effort: normal Respiratory: bilateral: CTA - Cardiovascular Heart Sounds: Present: S1 & S2. Absent: rub, click - Extremities Extremities: pulses symmetrical, No edema Peripheral Pulses: within normal limits - Abdominal General gastrointestinal: Present: soft, non-tender, non-distended, normal bowel sounds Female genitourinary: Present: deferred - Rectal Rectal Exam: deferred - Integumentary Integumentary: Present: clear, warm, dry - Musculoskeletal Musculoskeletal: gait normal, strength equal bilaterally - Psychiatric Psychiatric: appropriate mood/affect, intact judgment & insight - Neurologic Neurologic: CNII-XII intact, moves all extremities Plan Activity: no restrictions Diet: regular Follow up with: SADI CEDENO DO [Primary Care Provider] - 7 Days
== END 2019-11-12 19:15 | disposition home health service (06) | DRG 640 ==
LOC: UNDOADMOB 12:12 → 3A 12:12 → OBSVTOIN 11-04 16:16
PROVIDERS: ADMIT Internal Medicine Hematology & Oncology; ATTEND Internal Medicine Hematology & Oncology
DX: E86.0 Dehydration (principal); E43 Unspecified severe protein-calorie malnutrition; E11.42 Type 2 diabetes mellitus with diabetic polyneuropathy; D64.9 Anemia, unspecified; D61.818 Other pancytopenia; G72.9 Myopathy, unspecified; R64 Cachexia; Z68.20 Body mass index [BMI] 20.0-20.9, adult; Z90.49 Acquired absence of other specified parts of digestive tract
CPT/HCPCS: 36415; 70553; 72156; 72157; 72158; 76700; 80053; 80074; 82306; 82525; 82607; 82728; 82747; 83540; 83550; 83735; 83921; 83970; 84134; 84207; 84425; 84439; 84443; 84446; 84590; 84630; 85007; 85014; 85018; 85025; 85045; 86038; 86140; 94640; G0378; A9577; C9113; G0379; J3411; J3420; J7040; J7042; J7050; J7070